=== PATIENT | male | born 1950 | race Two or more races ===

== ENCOUNTER → 2021-05-09 | Outpatient (CLI) | payer MEDICARE ==
[2021-05-09 13:23] LABS: Source, Urine Clean Catch
[2021-05-09 13:40] LABS: Bacteria Not Seen /hpf; Red Blood Cells, Urine Not Seen /hpf (0-2); Squamous Epithelial Cells Rare /hpf (Few); White Blood Cells, Urine Not Seen /hpf (0-5)
[2021-05-09 17:43] LABS: Microalb/Creat Ratio UR, Rand 6.46 mg/g (0.000-30.000); Microalbumin, Random Urine 6.46 mg/L (0.000-20.000)
[2021-05-13 14:10] LABS: M-SPIKE, % Not Observed % (Not Observed); PROTEIN,TOTAL,URINE 6.6 mg/dL (Not Estab.)
== END | disposition home or self-care (01) ==
LOC: LAB SHORT 10:45
PROVIDERS: Family Medicine
DX: N18.32 Chronic kidney disease, stage 3b (principal)
CPT/HCPCS: 81015; 82043; 82570; 84156; 84166

== ENCOUNTER 2021-11-13 10:55 | Day surgery (SDC) | payer MEDICARE ==
[~2021-11-13] VITALS: Ht 182.9 cm; Wt 75.7 kg
[~2021-11-13 10:55] MED LIST: ATOR10 PO
--- NOTE | 2021-11-13 13:13 | NUR ---
Ambulatory in Day Surgery History, Chart, Medications and Allergies reviewed before start of procedure.Lungs clear T/O to Auscultation. Patient confirms NPO status and agrees with scheduled surgery. Patient States Post-Procedure ride home has been arranged.
--- NOTE | 2021-11-13 13:22 | NUR ---
11/13/21 1322 Ivory Gonzalez HISTORY, CHART, MEDICATIONS AND ALLERGIES REVIEWED BEFORE START OF PROCEDURE. PATIENT CONFIRMS NPO STATUS AND AGREES WITH SCHEDULED PROCEDURE. 3-LEAD EKG REVIEWED WITH PHYSICIAN PRIOR TO START OF PROCEDURE. MONITOR INTACT WITH CONTINUOUS PULSE OXIMETRY,CAPNOGRAPHY, 3-LEAD EKG, INTERMITTENT BP. SUPPLEMENTAL O2 TO BE TITRATED THROUGHOUT PROCEDURE TO MAINTAIN O2 SATURATION ABOVE 90%. PATIENT DETERMINED TO BE ASA APPROPRIATE FOR PROPOFOL SEDATION PRIOR TO START OF PROCEDURE BY DR. TREJO.
--- NOTE | 2021-11-13 14:13 | NUR ---
RECIEVED PATIENT VSS RECIEVED REPORT.
--- NOTE | 2021-11-13 14:30 | NUR ---
Discharge instructions reviewed with patient. Patient verbalizes understanding. Copy given to patient to take home. Patient States Post-Procedure ride home has been arranged. Discharged via wheelchair to private car for ride home.
== END 2021-11-13 23:00 | disposition home or self-care (01) ==
LOC: ORSCMMR 10:55 → ORSCSDS 13:30 → ORSCMMR 13:30 → ORD 13:30 → ORSCMMR 23:00
PROVIDERS: Student in an Organized Health Care Education/Training Program
PROC: 0DB78ZX Excision of Stomach, Pylorus, Via Natural or Artificial Opening Endoscopic, Diagnostic (ICD-10-PCS; principal; 2021-11-13 13:30)
PROC: 0DB58ZX Excision of Esophagus, Via Natural or Artificial Opening Endoscopic, Diagnostic (ICD-10-PCS; principal; 2021-11-13 13:30)
DX: K21.00 Gastro-esophageal reflux disease with esophagitis, without bleeding (principal); B96.81 Helicobacter pylori [H. pylori] as the cause of diseases classified elsewhere; K29.70 Gastritis, unspecified, without bleeding; E78.5 Hyperlipidemia, unspecified; Z79.899 Other long term (current) drug therapy
CPT/HCPCS: 88305; 88312; 88342; J2704; J7120

== ENCOUNTER 2023-03-17 07:18 | Emergency (ER) | payer MEDICARE ==
[~2023-03-17] VITALS: Ht 182.9 cm; Wt 74.8 kg
[2023-03-17 09:31] LABS: BASOPHILS ABSOLUTE AUTO 0.03 K/mm3 (0.00-0.23); BASOPHILS PERCENT AUTO 0 % (0-2); EOSINOPHILS ABSOLUTE AUTO 0.04 K/mm3 (0.00-0.68); EOSINOPHILS PERCENT AUTO 0 % (0-6); Hematocrit 49.5 % (37.0-53.0); Hemoglobin 17.1 g/dL (13.5-17.5); IMMATURE GRAN ABSOLUTE AUTO 0.05 K/mm3 (0.00-0.10); IMMATURE GRAN PERCENT AUTO 1 % (0-1); LYMPHOCYTES ABSOLUTE AUTO 0.86 K/mm3 (0.84-5.20); LYMPHOCYTES PERCENT AUTO 8 % (21-46); MONOCYTES ABSOLUTE AUTO 0.54 K/mm3 (0.16-1.47); MONOCYTES PERCENT AUTO 5 % (4-13); Mean Corpuscular HGB 34.6 pg (26.0-34.0); Mean Corpuscular HGB Conc 34.5 g/dL (31.5-36.5); Mean Corpuscular Volume 100 fL (80-100); Mean Platelet Volume 10.2 fL (9.1-12.4); NEUTROPHILS ABSOLUTE AUTO 8.92 K/mm3 (1.96-9.15); NEUTROPHILS PERCENT AUTO 85 % (41-73); Platelet Count 158 K/mm3 (150-400); RDW Coefficient Variation 12.6 % (11.7-14.2); RDW Standard Deviation 46.5 fL (35.1-46.3); Red Blood Cell Count 4.94 M/mm3 (4.30-5.90); White Blood Cell Count 10.44 K/mm3 (4.00-11.30)
[2023-03-17 09:41] LABS: C-REACTIVE PROTEIN, EXT RANGE <0.290 mg/dL (0.000-0.300)
[2023-03-17 09:42] LABS: Alanine Aminotransfer (ALT/SGP 30 U/L (12-78); Albumin, Blood 3.8 g/dL (3.4-5.0); Albumin/Globulin Ratio 1.2 (0.8-1.8); Alk Phos 62 U/L (50-136); Anion Gap 0 mmol/L (6-16); Aspartate Aminotrans (AST/SGOT 20 U/L (12-37); Bilirubin, Total 0.9 mg/dL (0.1-1.0); Blood Urea Nitrogen 17 mg/dL (8-24); Bun/Creatinine Ratio 13.9 (12.0-20.0); CO2, Blood 28 mmol/L (21-32); Calcium, Blood 8.8 mg/dL (8.5-10.1); Chloride, Blood 113 mmol/L (98-108); Creatinine, Blood 1.22 mg/dL (0.60-1.20); Globulin, Blood 3.3 g/dL (2.2-4.0); Glomerular Filtration Rate 63 (60-); Glucose, Blood 133 mg/dL (70-99); Potassium, Blood 4.2 mmol/L (3.5-5.5); Sodium, Blood 141 mmol/L (136-145); Total Protein, Blood 7.1 g/dL (6.4-8.2)
[2023-03-17] MEDS ORDERED: MECL25 PO (11:45)
[2023-03-17 12:33] VITALS: BP 131/89
== END 2023-03-17 12:34 | disposition home or self-care (01) ==
LOC: ER 07:18
PROVIDERS: Physician Assistant
DX: R42 Dizziness and giddiness (principal); E78.5 Hyperlipidemia, unspecified; Z79.899 Other long term (current) drug therapy
CPT/HCPCS: 80053; 85025; 86140; 96374; 99284-25; A9270; J2405

== ENCOUNTER 2023-08-03 19:19 | Emergency (ER) | payer MEDICARE ==
[~2023-08-03] VITALS: Ht 162.6 cm; Wt 72.6 kg
[~2023-08-03 19:19] MED LIST changes: +MECL25 PO
[2023-08-03] MEDS ORDERED: Acetaminophen 500 MG Tab PO ONE (20:05)
[2023-08-03 20:13] LABS: BASOPHILS ABSOLUTE AUTO 0.05 K/mm3 (0.00-0.23); BASOPHILS PERCENT AUTO 1 % (0-2); EOSINOPHILS ABSOLUTE AUTO 0.02 K/mm3 (0.00-0.68); EOSINOPHILS PERCENT AUTO 0 % (0-6); Hematocrit 49.8 % (37.0-53.0); Hemoglobin 17.2 g/dL (13.5-17.5); IMMATURE GRAN ABSOLUTE AUTO 0.06 K/mm3 (0.00-0.10); IMMATURE GRAN PERCENT AUTO 1 % (0-1); LYMPHOCYTES ABSOLUTE AUTO 0.82 K/mm3 (0.84-5.20); LYMPHOCYTES PERCENT AUTO 8 % (21-46); MONOCYTES PERCENT AUTO 9 % (4-13); Mean Corpuscular HGB 34.1 pg (26.0-34.0); Mean Corpuscular HGB Conc 34.5 g/dL (31.5-36.5); Mean Corpuscular Volume 99 fL (80-100); Mean Platelet Volume 10.4 fL (9.1-12.4); NEUTROPHILS ABSOLUTE AUTO 8.69 K/mm3 (1.96-9.15); NEUTROPHILS PERCENT AUTO 82 % (41-73); Platelet Count 150 K/mm3 (150-400); RDW Coefficient Variation 12.5 % (11.7-14.2); RDW Standard Deviation 45.5 fL (35.1-46.3); Red Blood Cell Count 5.05 M/mm3 (4.30-5.90); White Blood Cell Count 10.64 K/mm3 (4.00-11.30)
[2023-08-03 20:26] LABS: Albumin, Blood 3.5 g/dL (3.4-5.0); Albumin/Globulin Ratio 0.9 (0.8-1.8); Bilirubin, Total 1.7 mg/dL (0.1-1.0); Bun/Creatinine Ratio 15.5 (12.0-20.0); Calcium, Blood 9.1 mg/dL (8.5-10.1); Creatinine, Blood 1.42 mg/dL (0.60-1.20); Globulin, Blood 3.8 g/dL (2.2-4.0); Potassium, Blood 4.4 mmol/L (3.5-5.5); Total Protein, Blood 7.3 g/dL (6.4-8.2)
[2023-08-03] MEDS ORDERED: Ketorolac Tromethamine 30mg Vial IV ONE (22:30)
[2023-08-03] MEDS ORDERED: DiphenhydrAMINE HCl 50 MG/ML 1ML Vial IV ONE (22:30)
[2023-08-03] MEDS ORDERED: Metoclopramide HCl 5MG / ML 2ML Vial IV ONE (22:30)
[2023-08-03 23:50] LABS: Source, Urine Clean Catch
[2023-08-04] VITALS: BP 126/78
[2023-08-04] MEDS ORDERED: METO10 PO ×2 (00:05→00:18)
[2023-08-04 00:58] LABS: Bilirubin, Urine Neg (Neg); Blood, Urine 5+ (Neg); Glucose Qualitative, Urine Neg (Neg); Ketones, Urine 2+ (Neg); Leukocyte Esterase, Urine Neg (Neg); Nitrite, Urine Neg (Neg); Protein, Urine 2+ (Neg); Specific Gravity, Urine 1.015 (1.003-1.022); Urobilinogen, Urine NORM (Normal)
[2023-08-04 02:00] LABS: Appearance, Urine Clear (Clear); Color, Urine Yellow (P-Yellow)
[2023-08-04 02:02] LABS: Bacteria Few /hpf; Red Blood Cells, Urine 0-2 /hpf (0-2); Squamous Epithelial Cells Few /hpf (Few); White Blood Cells, Urine 0-2 /hpf (0-5)
== END 2023-08-04 00:18 | disposition home or self-care (01) ==
LOC: ER 19:19
PROVIDERS: Student in an Organized Health Care Education/Training Program
DX: H81.399 Other peripheral vertigo, unspecified ear (principal); S20.211A Contusion of right front wall of thorax, initial encounter; S50.01XA Contusion of right elbow, initial encounter; I10 Essential (primary) hypertension; Z79.899 Other long term (current) drug therapy; E78.5 Hyperlipidemia, unspecified
CPT/HCPCS: 36415; 70450; 71101; 73080; 80053; 81001; 83605; 83690; 84484; 85025; 87040; 93005; 93010; 96374; 96375; 99285-25; A9270; J1200; J1885; J2765

== ENCOUNTER 2023-11-30 09:06 | Day surgery (SDC) | payer MEDICARE ==
[2023-11-30] VITALS (16 sets, daily range): BP systolic 95–140; BP diastolic 67–103
[~2023-11-30] VITALS: Ht 177.8 cm; Wt 77.7 kg
[~2023-11-30 09:06] MED LIST changes: +Benzocaine Oral Spray 0.5ML UD ONE; +Lactated Ringer's 1,000 ML IV SCH; +METO10 PO; +OMEP20ER
--- NOTE | 2023-11-30 10:07 | NUR ---
PT TO DAY SURGERY FOR EGD. CHART REVIEWED. PLAN OF CARE DISCUSSED WITH PT. QUESTIONS ANSWERED. PT HERE WITH AND SHE WILL BE HIS RIDE HOME.
[2023-11-30] MEDS ORDERED: propofoL 20 ML IV ONE (10:43)
--- NOTE | 2023-11-30 11:16 | NUR ---
REPORT RECEIVED FROM BUCK VINES. VSS. PT A&OX4. PT ON RA. PT ABLE TO REPOSITION SELF IN BED. PT REQUESTING PO FLUIDS AND TOLERATING THEM WELL. PT DENIES PAIN, NAUSEA OR OTHER DISCOMFORTS.
--- NOTE | 2023-11-30 11:17 | NUR ---
11/30/23 Ivana Landrum HISTORY, CHART, MEDICATIONS AND ALLERGIES REVIEWED BEFORE START OF PROCEDURE. PATIENT CONFIRMS NPO STATUS AND AGREES WITH SCHEDULED PROCEDURE. 3-LEAD EKG REVIEWED WITH PHYSICIAN PRIOR TO START OF PROCEDURE. MONITOR INTACT WITH CONTINUOUS PULSE OXIMETRY,CAPNOGRAPHY, 3-LEAD EKG, INTERMITTENT BP. SUPPLEMENTAL O2 TO BE TITRATED THROUGHOUT PROCEDURE TO MAINTAIN O2 SATURATION ABOVE 90%. PATIENT DETERMINED TO BE ASA APPROPRIATE FOR PROPOFOL SEDATION PRIOR TO START OF PROCEDURE BY
--- NOTE | 2023-11-30 11:41 | NUR ---
Patient up to Ambulate independently. Gait steady. VSS AND CONSISTENT WITH PT BASELINE. PT HAS NO COMPLAINTS AND VERBALIZES READINESS TO GO HOME. Discharge instructions reviewed with patient AND HIS SPOUSE. Patient verbalizes understanding. Copy given to patient to take home. Discharged via wheelchair to private car for ride home. PT BELONGINGS RETURNED TO PT.
== END 2023-11-30 11:43 | disposition home or self-care (01) ==
LOC: ORSCMMR 09:06 → ORD 10:00 → ORSCMMR 10:00
PROVIDERS: Internal Medicine Gastroenterology
PROC: 0DB68ZX Excision of Stomach, Via Natural or Artificial Opening Endoscopic, Diagnostic (ICD-10-PCS; principal; 2023-11-30 10:00)
PROC: 0DB48ZX Excision of Esophagogastric Junction, Via Natural or Artificial Opening Endoscopic, Diagnostic (ICD-10-PCS; principal; 2023-11-30 10:00)
DX: K29.00 Acute gastritis without bleeding (principal); K22.70 Barrett's esophagus without dysplasia; K21.00 Gastro-esophageal reflux disease with esophagitis, without bleeding; E78.00 Pure hypercholesterolemia, unspecified; Z79.899 Other long term (current) drug therapy
CPT/HCPCS: 88305; 88342; A9270; J2704; J7120

== ENCOUNTER → 2023-12-30 | Outpatient (CLI) | payer MEDICARE ==
[~2023-12-30] MED LIST changes: -Benzocaine Oral Spray 0.5ML UD ONE; -Lactated Ringer's 1,000 ML IV SCH
[2023-12-30 12:31] LABS: Adenovirus F 40/41 Not Detected (NOT DETECT); Astrovirus Not Detected (NOT DETECT); Campylobacter Sp Not Detected (NOT DETECT); Cryptosporidium Not Detected (NOT DETECT); Cyclospora Cayetanensis Not Detected (NOT DETECT); E. Coli O157 Not Detected (NOT DETECT); Entamoeba Histolytica Not Detected (NOT DETECT); Enteroaggregative E. coli-EAEC Not Detected (NOT DETECT); Enteropathogenic E. coli-EPEC Not Detected (NOT DETECT); Enterotoxigenic E. coli-ETEC Not Detected (NOT DETECT); Giardia Lamblia Not Detected (NOT DETECT); Norovirus GI/GII Not Detected (NOT DETECT); Plesiomonas Shigelloides Not Detected (NOT DETECT); Rotavirus A Not Detected (NOT DETECT); Salmonella Sp Not Detected (NOT DETECT); Sapovirus Not Detected (NOT DETECT); Shiga Toxin-prod E. coli-STEC Not Detected (NOT DETECT); Shigella/Enteroin E. coli-EIEC Not Detected (NOT DETECT); Vibrio Cholerae Not Detected (NOT DETECT); Vibrio Sp Not Detected (NOT DETECT); Yersinia Enterocolitica Not Detected (NOT DETECT)
== END ==
LOC: LAB SHORT 06:50 → LAB 06:50
PROVIDERS: Family Medicine
DX: R19.7 Diarrhea, unspecified (principal)
CPT/HCPCS: 87507

== ENCOUNTER 2024-03-28 09:38 | Day surgery (SDC) | payer MEDICARE ==
[~2024-03-28] VITALS: Ht 15.2 cm; Wt 79.0 kg
[2024-03-28] VITALS (18 sets, daily range): BP systolic 117–174; BP diastolic 76–145
[~2024-03-28 09:38] MED LIST changes: +NS 500 ML IV SCH
--- NOTE | 2024-03-28 10:51 | NUR ---
Ambulatory in Day Surgery WITH STEADY GAIT. History, Chart, Medications and Allergies reviewed before start of procedure. Pre-Op teaching done. Pt verbalizes understanding. Patient States Post-Procedure ride home has been arranged WITH SPOUSE.
[2024-03-28] MEDS ORDERED: propofoL 40 ML IV ONE (10:52)
--- NOTE | 2024-03-28 10:56 | NUR ---
03/28/24 1056 Chelle Sierra CONFIRMED AND REVIEWED H&P, MEDCICATIONS, ALLERGIES, MEDICAL HISTORY, RESPIRATORY HISTORY, VITAL SIGNS, 3-LEAD EKG, CONSENTS, AND PHYSICIAN ORDERS. PATIENT CONFIRMS NPO STATUS AND AGREES WITH SCHEDULED PROCEDURE. MONITOR INTACT WITH CONTINUOUS PULSE OXIMETRY, CAPNOGRAPHY, 3-LEAD EKG, INTERMITTENT BP. SUPPLEMENTAL O2 TO BE TITRATED THROUGHOUT PROCEDURE TO MAINTAIN O2 SATURATION ABOVE 90%. PATIENT DETERMINED TO BE ASA APPROPRIATE FOR PROPOFOL SEDATION PRIOR TO START OF PROCEDURE BY DR. CASSIDY.
--- NOTE | 2024-03-28 11:25 | NUR ---
PT TO DAY SURGERY STEP DOWN FROM COLONOSCOPY; BEDSIDE REPORT RECEIVED. PT IS AWAKE, ALERT AND ORIENTED; ABLE TO MOVE SELF IN BED. AT BEDSIDE.
--- NOTE | 2024-03-28 11:37 | NUR ---
PT DENIES PO FLUIDS. Discharge instructions reviewed with patient. Patient verbalizes understanding. Copy given to patient to take home. Patient States Post-Procedure ride home has been arranged.
--- NOTE | 2024-03-28 12:02 | NUR ---
Patient up to Ambulate independently. Gait steady. Discharged via wheelchair to private car for ride home.
== END 2024-03-28 12:03 | disposition home or self-care (01) ==
LOC: ORSCMMR 09:38 → ORD 11:00 → ORSCMMR 11:00
PROVIDERS: Internal Medicine Gastroenterology
PROC: 0DBN8ZX Excision of Sigmoid Colon, Via Natural or Artificial Opening Endoscopic, Diagnostic (ICD-10-PCS; principal; 2024-03-28 11:00)
DX: K62.5 Hemorrhage of anus and rectum (principal); D12.5 Benign neoplasm of sigmoid colon; K51.40 Inflammatory polyps of colon without complications; K57.30 Diverticulosis of large intestine without perforation or abscess without bleeding; K22.70 Barrett's esophagus without dysplasia; E78.00 Pure hypercholesterolemia, unspecified; Z79.899 Other long term (current) drug therapy
CPT/HCPCS: 88305; J2704; J7040

== ENCOUNTER 2024-06-03 10:14 | Emergency (ER) | payer MEDICARE ==
[~2024-06-03] VITALS: Ht 180.3 cm; Wt 82.1 kg
[~2024-06-03 10:14] MED LIST changes: -NS 500 ML IV SCH
[2024-06-03 10:47] LABS: BASOPHILS ABSOLUTE AUTO 0.11 K/mm3 (0.00-0.23); BASOPHILS PERCENT AUTO 2 % (0-2); EOSINOPHILS ABSOLUTE AUTO 0.47 K/mm3 (0.00-0.68); EOSINOPHILS PERCENT AUTO 6 % (0-6); Hematocrit 48.2 % (37.0-53.0); Hemoglobin 17.1 g/dL (13.5-17.5); Mean Corpuscular HGB Conc 35.5 g/dL (31.5-36.5); Mean Corpuscular Volume 96 fL (80-100); Mean Platelet Volume 12.2 fL (9.1-12.4); NRBC ABSOLUTE 0.02 K/mm3 (0.00-0.02); NRBC Auto 0.3 /100 WBC (0.0-0.2); Platelet Count 311 K/mm3 (150-400); RDW Coefficient Variation 13.6 % (11.7-14.2); RDW Standard Deviation 47.9 fL (35.1-46.3); Red Blood Cell Count 5.03 M/mm3 (4.30-5.90)
[2024-06-03 10:59] LABS: IMMATURE GRAN ABSOLUTE AUTO 0.15 K/mm3 (0.00-0.10); IMMATURE GRAN PERCENT AUTO 2 % (0-1); LYMPHOCYTES ABSOLUTE AUTO 2.17 K/mm3 (0.84-5.20); LYMPHOCYTES PERCENT AUTO 30 % (21-46); MONOCYTES ABSOLUTE AUTO 0.69 K/mm3 (0.16-1.47); MONOCYTES PERCENT AUTO 10 % (4-13); NEUTROPHILS ABSOLUTE AUTO 3.71 K/mm3 (1.96-9.15); NEUTROPHILS PERCENT AUTO 51 % (41-73)
[2024-06-03 11:23] LABS: International Normalized Ratio 1.12; Prothrombin Time Results 11.9 Sec (9.7-11.5)
[2024-06-03 11:25] LABS: Albumin, Blood 3.7 g/dL (3.4-5.0); Albumin/Globulin Ratio 1.2 (0.8-1.8); Bun/Creatinine Ratio 19.2 (12.0-20.0); Calcium, Blood 9.2 mg/dL (8.5-10.1); Creatinine, Blood 1.2 mg/dL (0.60-1.20); Globulin, Blood 3.2 g/dL (2.2-4.0); Potassium, Blood 4.2 mmol/L (3.5-5.5); Total Protein, Blood 6.9 g/dL (6.4-8.2)
[2024-06-03 11:26] LABS: BASOPHILS ABSOLUTE MAN 0.14 K/mm3 (0.00-0.23); BASOPHILS PERCENT MAN 2 % (0-2); EOSINOPHILS ABSOLUTE MAN 0.36 K/mm3 (0.00-0.68); EOSINOPHILS PERCENT MAN 5 % (0-6); LYMPHOCYTES ABSOLUTE MAN 2.33 K/mm3 (0.84-5.20); LYMPHOCYTES PERCENT MAN 32 % (21-46); METAMYELOCYTE ABSOLUTE MAN 0.07 K/mm3 (0.00-0.00); METAMYELOCYTE PERCENT MAN 1 % (0-0); MONOCYTES ABSOLUTE MAN 0.51 K/mm3 (0.16-1.47); MONOCYTES PERCENT MAN 7 % (4-13); NEUTROPHILS ABSOLUTE MAN 3.86 K/mm3 (1.96-9.15); SEG NEUTROPHILS PERCENT MAN 53 % (41-73); TOTAL CELLS COUNTED 100
[2024-06-03 12:00] VITALS: BP 145/89
== END 2024-06-03 12:14 | disposition home or self-care (01) ==
LOC: ER 10:14
PROVIDERS: Emergency Medicine
DX: I62.9 Nontraumatic intracranial hemorrhage, unspecified (principal); I61.0 Nontraumatic intracerebral hemorrhage in hemisphere, subcortical; G81.91 Hemiplegia, unspecified affecting right dominant side; E78.5 Hyperlipidemia, unspecified; Z79.899 Other long term (current) drug therapy
CPT/HCPCS: 70450; 80053; 85025; 85610; 85730; 93005; 93010; 99285-25

== ENCOUNTER 2024-06-26 10:13 | Inpatient (IN) | payer MEDICARE ==
[~2024-06-26] VITALS: Ht 182.9 cm; Wt 82.2 kg
[~2024-06-26 10:13] MED LIST changes: -OMEP20ER; +OMEP20ER PO
[2024-06-26 10:25] LABS: Calcium, Ionized (POC) 1.09 mmol/L (1.10-1.46); Chloride (POC) 102 mmol/L (98-108); Creatinine (POC) 1.6 mg/dL (0.8-1.3); Glucose (ISTAT POC) 229 mg/dL (70-99); Hemoglobin (POC) 19.4 g/dL (13.5-17.5); Potassium (POC) 3.2 mmol/L (3.5-5.5); Sodium (POC) 140 mmol/L (135-148); Total CO2 (POC) 21 mmol/L (21-32)
[2024-06-26] MEDS ORDERED: fentaNYL citrate 1,000 MCG in NS 80 ML IV SCH ×2 (10:25→15:20)
[2024-06-26 10:34] LABS: Source, Urine Foley catheter
[2024-06-26 10:34] LABS: Hemoglobin 18.5 g/dL (13.5-17.5); Mean Corpuscular HGB Conc 32.7 g/dL (31.5-36.5); Mean Corpuscular Volume 104 fL (80-100); Mean Platelet Volume 9.7 fL (9.1-12.4); Platelet Count 123 K/mm3 (150-400); RDW Coefficient Variation 12.4 % (11.7-14.2); Red Blood Cell Count 5.44 M/mm3 (4.30-5.90); White Blood Cell Count 14.76 K/mm3 (4.00-11.30)
[2024-06-26 10:43] LABS: Hematocrit 56.5 % (37.0-53.0)
[2024-06-26 10:53] LABS: Base Excess Venous -12.7 mmol/L; Bicarbonate Venous 13.9 mmol/L (24.0-30.0); PCO2 Venous 70.9 mmHg (38-42); pH Blood Venous 7.02 (7.34-7.37)
[2024-06-26 10:58] LABS: Albumin, Blood 3.1 g/dL (3.4-5.0); Albumin/Globulin Ratio 0.9 (0.8-1.8); Bilirubin, Total 0.9 mg/dL (0.1-1.0); Calcium, Blood 8.3 mg/dL (8.5-10.1); Creatinine, Blood 1.5 mg/dL (0.60-1.20); Globulin, Blood 3.4 g/dL (2.2-4.0); Magnesium, Blood 2.8 mg/dL (1.6-2.4); Potassium, Blood 3.2 mmol/L (3.5-5.5); Total Protein, Blood 6.5 g/dL (6.4-8.2)
[2024-06-26] MEDS ORDERED: Lactated Ringer's 1,000 ML IV ONE ×3 (11:05→18:21)
[2024-06-26] MEDS ORDERED: Potassium Chl 20MEQ/Water100ML 100 ML IV SCH (11:20)
[2024-06-26 11:21] LABS: Appearance, Urine Hazy (Clear); Bilirubin, Urine Neg (Neg); Blood, Urine 5+ (Neg); Color, Urine Yellow (P-Yellow); Glucose Qualitative, Urine Neg (Neg); Ketones, Urine Neg (Neg); Leukocyte Esterase, Urine Neg (Neg); Nitrite, Urine Neg (Neg); Protein, Urine 2+ (Neg); Urobilinogen, Urine NORM (Normal)
[2024-06-26] MEDS ORDERED: Potassium Chloride 20 MEQ in NS 90 ML IV SCH (11:25)
[2024-06-26 11:42] LABS: International Normalized Ratio 1.07; Prothrombin Time Results 11.4 Sec (9.7-11.5)
[2024-06-26] MEDS ORDERED: Amlodipine Bes2.5 MG PO (11:52)
[2024-06-26] MEDS ORDERED: Acetaminophen650 M1 PO (11:52)
[2024-06-26] MEDS ORDERED: Zofran4 MG PO (11:53)
[2024-06-26 12:06] LABS: Amorphous Light (0-Heavy); Bacteria Not Seen /hpf; Squamous Epithelial Cells Few /hpf (Few); White Blood Cells, Urine 0-2 /hpf (0-5)
[2024-06-26 12:43] LABS: CORONAVIRUS COVID-19 AG Negative (NEGATIVE); INFLUENZA A AG Negative (NEGATIVE); INFLUENZA B AG Negative (NEGATIVE)
[2024-06-26] MEDS ORDERED: Midazolam HCl 1MG / ML 2ML Vial IV PRN (13:05)
[2024-06-26 13:13] LABS: BASOPHILS PERCENT MAN 0 % (0-2); EOSINOPHILS ABSOLUTE MAN 0.44 K/mm3 (0.00-0.68); EOSINOPHILS PERCENT MAN 3 % (0-6); LYMPHOCYTES ABSOLUTE MAN 7.23 K/mm3 (0.84-5.20); LYMPHOCYTES PERCENT MAN 49 % (21-46); METAMYELOCYTE ABSOLUTE MAN 0.14 K/mm3 (0.00-0.00); METAMYELOCYTE PERCENT MAN 1 % (0-0); MONOCYTES ABSOLUTE MAN 0.29 K/mm3 (0.16-1.47); MONOCYTES PERCENT MAN 2 % (4-13); MYELOCYTE ABSOLUTE MAN 0.29 K/mm3 (0.00-0.00); MYELOCYTE PERCENT MAN 2 % (0-0); NEUTROPHILS ABSOLUTE MAN 6.34 K/mm3 (1.96-9.15); SEG NEUTROPHILS PERCENT MAN 43 % (41-73); TOTAL CELLS COUNTED 100
[2024-06-26] MEDS ORDERED: Lactated Ringer's 1,000 ML IV SCH ×2 (14:20→22:45)
[2024-06-26] MEDS ORDERED: propofoL 100 ML IV SCH (14:25)
[2024-06-26] MEDS ORDERED: FentaNYL Citrate 50 MCG/ML 2 ML Injection IV PRN (14:50)
[2024-06-26] MEDS ORDERED: LORazepam 2 MG/ML 1ML Injection IV PRN (14:50)
[2024-06-26] MEDS ORDERED: Cetylpyridinium Chloride 1 EA MISC MT SCH (14:50)
[2024-06-26 15:34] LABS: Anti-Xa UFH, PHA Monitoring <0.10 IU/mL
[2024-06-26] MEDS ORDERED: Heparin Sodium,Porcine/0.5 NS 500 ML IV SCH (15:45)
--- NOTE | 2024-06-26 15:51 | NUR ---
1549: pacer on 30 amp @ 100; Dr. Mckeon and Dr. Cochran at bedside. 1550: 1 mg atropine in 1551: 1 mg Epinephrine in 1552: Femoral pulse obtained via Doppler 1552: Sodium bicarb in, 50 meq in 50 mL; Family at bedside 1553: BP 125/106 (113) 1553: CBG 255 1555: Vent settings: AC/VC 16/400/10/70% 1556: HR 160, EKG Completed 1559: HEPARIN GTT STARTED. 1603: HR 59, EPI GTT ORDERED 1605: 0.5 MG EPI GIVEN. 1606: HR 63; 100% FIO2 ON VENT 1608: 118/87 (98); HR 153; SPO2 99% 1611: LEVOPHED STOPPED. EPI GTT STARTED AT 2 MCG/MIN. 1614: EPI INCREASED TO 5 MCG/MIN; HR 65 (COMPLETE HEART BLOCK PER DR. MCKEON) 1614: 88/32 (48); HR 60 1616: EPI INCREASED TO 10 MCG/MIN; HR 60; 54/40 (45) 1617: PROPOFOL TO 20 MG/KG/MIN 1618: 57/40 (46); HR 60 1618: LEVOPHED RESTARTED AT 4 MCG/MIN 1621: 54/47 (51); HR 59 1624: 50 MEQ BICARB IN; TRANSCUTANEOUS PACING STARTED 1627: LEVOPHED TO 6 MCG/MIN; VASOPRESSIN STARTED AT 0.04 UNITS/MIN. 1630: PATIENT TRANSFERRED TO [facility]
[2024-06-26] MEDS ORDERED: Piperacillin/Tazobactam Sod 3.375 GM in NS 100 ML IV SCH (16:00)
[2024-06-26] MEDS ORDERED: Hydrogen Peroxide 1.5 % Solution MT SCH (16:00)
[2024-06-26] MEDS ORDERED: Vancomycin HCL 2,000 MG in NS 500 ML IV SCH (16:00)
[2024-06-26] MEDS ORDERED: Vasopressin 20 UNITS in NS 100 ML IV SCH (16:20)
[2024-06-26 16:22] LABS: PCO2 Arterial 33.6 mmHg (35-45); pH Blood Arterial 7.18 (7.35-7.45)
[2024-06-26 16:23] LABS: PO2 Arterial 123 mmHg (80-100)
[2024-06-26] MEDS ORDERED: NS 250 ML IV ONE (16:35)
[2024-06-26] MEDS ORDERED: NS 1,000 ML IV ONE ×4 (16:35→18:18)
[2024-06-26] MEDS ORDERED: Heparin Sodium 1000 Units/ML 10ML MDV ONE ×4 (16:35→18:37)
[2024-06-26] MEDS ORDERED: Phenylephrine HCl in 0.9% NaCl 250 ML IV SCH (18:35)
[2024-06-26] MEDS ORDERED: Clopidogrel Bisulfate 300 MG Cap ONE (18:47)
[2024-06-26] MEDS ORDERED: Aspirin 325 MG Tab ONE (18:50)
[2024-06-26] MEDS ORDERED: NS 500 ML IV ONE (18:54)
[2024-06-26 19:57] LABS: PO2 Arterial 131 mmHg (80-100)
[2024-06-26] MEDS ORDERED: Atropine Sulfate 0.1 MG/ML 10ML SYR XX ONE (19:58)
[2024-06-26] MEDS ORDERED: Sodium Bicarb 8.4% 50 mEq Syringe IV ONE (19:58)
[2024-06-26] MEDS ORDERED: EPINEPhrine HCl 0.1 MG/ML 10ML SYR XX ONE (19:58)
[2024-06-26 19:59] LABS: pH Blood Arterial 7.11 (7.35-7.45)
--- NOTE | 2024-06-26 20:01 | NUR ---
Summary. Pt arrived to ICU at approximately 1349 from ED. Pt intubated, fentanyl infusing at 25 mcg/hr. Pt minimally responsive but would follow simple commands weakly with notable deficit on right side. Shortly after arrival to ICU pt condition declined and physician called along with additional staff to bedside to assist, see note. Pt taken to heart center for temp pacemaker placement and paving and surfacing labourer interventions, see chart for details. Pt back to ICU at approximately 1920 from paving and surfacing labourer.
[2024-06-26 20:05] VITALS: BP 117/70; BP 17/70
[2024-06-26 20:05] LABS: BASOPHILS ABSOLUTE AUTO 0.16 K/mm3 (0.00-0.23); BASOPHILS PERCENT AUTO 1 % (0-2); EOSINOPHILS ABSOLUTE AUTO 0.02 K/mm3 (0.00-0.68); EOSINOPHILS PERCENT AUTO 0 % (0-6); Hematocrit 48.4 % (37.0-53.0); Hemoglobin 15.9 g/dL (13.5-17.5); IMMATURE GRAN ABSOLUTE AUTO 1.51 K/mm3 (0.00-0.10); IMMATURE GRAN PERCENT AUTO 4 % (0-1); LYMPHOCYTES ABSOLUTE AUTO 2.03 K/mm3 (0.84-5.20); LYMPHOCYTES PERCENT AUTO 6 % (21-46); MONOCYTES ABSOLUTE AUTO 1.89 K/mm3 (0.16-1.47); MONOCYTES PERCENT AUTO 6 % (4-13); Mean Corpuscular HGB 33.9 pg (26.0-34.0); Mean Corpuscular HGB Conc 32.9 g/dL (31.5-36.5); Mean Corpuscular Volume 103 fL (80-100); NEUTROPHILS ABSOLUTE AUTO 28.44 K/mm3 (1.96-9.15); NEUTROPHILS PERCENT AUTO 83 % (41-73); Platelet Count 133 K/mm3 (150-400); RDW Coefficient Variation 12.5 % (11.7-14.2); RDW Standard Deviation 47.8 fL (35.1-46.3); Red Blood Cell Count 4.69 M/mm3 (4.30-5.90); White Blood Cell Count 34.05 K/mm3 (4.00-11.30)
[2024-06-26 20:22] LABS: Albumin, Blood 2.3 g/dL (3.4-5.0); Albumin/Globulin Ratio 0.9 (0.8-1.8); Bilirubin, Total 1.7 mg/dL (0.1-1.0); Bun/Creatinine Ratio 11.4 (12.0-20.0); Calcium, Blood 7.5 mg/dL (8.5-10.1); Creatinine, Blood 2.01 mg/dL (0.60-1.20); Globulin, Blood 2.7 g/dL (2.2-4.0); Potassium, Blood 3.8 mmol/L (3.5-5.5)
[2024-06-26 20:47] VITALS: BP 91/51
[2024-06-26] MEDS ORDERED: DOBUtamine 250 MG/D5W 250 ML 250 ML IV SCH (22:45)
[2024-06-26] MEDS ORDERED: Dose Adjust by Pharmacy XX STA (23:44)
[2024-06-27] VITALS (16 sets, daily range): BP systolic 71–150; BP diastolic 47–89
--- NOTE | 2024-06-27 00:02 | NUR ---
ASSUME CARE @ 1900 FROM PREFORM MACHINE OPERATOR: PT INTUBATED AND SEDATED, RASS -4. PROPOFOL AT 30 MCG/KG/MIN. PREFORM MACHINE OPERATOR PLACED TEMPORARY PACEMAKER, RATE 90, OUTPUT 5.0, SENSE 2.0, DRESSING C/D/I. MONITOR SHOWS PACED, SINUS TACH W/PVCs. SBP 90s-100s, MAP 60-70s. PT ON PRESSORS, SEE FLOWSHEET FOR TITRATIONS. ARTLINE IN PLACE, DRESSING C/D/I, NO SIGNS OF HEMATOMA. SP02>95% ON VENT, SETTINGS 16/400/10/85%. OGT IN PLACE, CLAMPED. TEMP LYONS IN PLACE DRAINING TO GRAVITY. 2300: DR. JOSHI NOTIFIED OF LACTIC ACID OF 11.1, NEW ORDERS RECIEVED, SEE EMAR. WILL UPDATE NEEDED.
[2024-06-27 00:58] LABS: Bun/Creatinine Ratio 13.4 (12.0-20.0); Calcium, Blood 7.3 mg/dL (8.5-10.1); Creatinine, Blood 1.87 mg/dL (0.60-1.20); Potassium, Blood 5.5 mmol/L (3.5-5.5)
[2024-06-27] MEDS ORDERED: Dose Adjust by Pharmacy XX STA ×5 (01:25→20:32)
[2024-06-27 04:03] LABS: PCO2 Arterial 31.5 mmHg (35-45); PO2 Arterial 174 mmHg (80-100)
[2024-06-27 04:08] LABS: BASOPHILS ABSOLUTE AUTO 0.11 K/mm3 (0.00-0.23); BASOPHILS PERCENT AUTO 0 % (0-2); EOSINOPHILS PERCENT AUTO 0 % (0-6); Hematocrit 45.6 % (37.0-53.0); Hemoglobin 15.9 g/dL (13.5-17.5); IMMATURE GRAN ABSOLUTE AUTO 0.47 K/mm3 (0.00-0.10); IMMATURE GRAN PERCENT AUTO 2 % (0-1); LYMPHOCYTES ABSOLUTE AUTO 1.87 K/mm3 (0.84-5.20); LYMPHOCYTES PERCENT AUTO 7 % (21-46); MONOCYTES ABSOLUTE AUTO 1.51 K/mm3 (0.16-1.47); MONOCYTES PERCENT AUTO 6 % (4-13); Mean Corpuscular HGB 34.1 pg (26.0-34.0); Mean Corpuscular HGB Conc 34.9 g/dL (31.5-36.5); Mean Platelet Volume 9.8 fL (9.1-12.4); NEUTROPHILS ABSOLUTE AUTO 23.68 K/mm3 (1.96-9.15); NEUTROPHILS PERCENT AUTO 86 % (41-73); Platelet Count 125 K/mm3 (150-400); RDW Coefficient Variation 12.3 % (11.7-14.2); RDW Standard Deviation 44.3 fL (35.1-46.3); Red Blood Cell Count 4.66 M/mm3 (4.30-5.90); White Blood Cell Count 27.64 K/mm3 (4.00-11.30)
[2024-06-27 04:10] LABS: Mean Corpuscular Volume 98 fL (80-100)
[2024-06-27 04:23] LABS: Albumin, Blood 2.5 g/dL (3.4-5.0); Albumin/Globulin Ratio 0.9 (0.8-1.8); Bilirubin, Direct 0.4 mg/dL (0.0-0.3); Bilirubin, Indirect 0.6 mg/dL (0.1-0.7); Bun/Creatinine Ratio 13.3 (12.0-20.0); Calcium, Blood 7.2 mg/dL (8.5-10.1); Creatinine, Blood 1.73 mg/dL (0.60-1.20); Globulin, Blood 2.7 g/dL (2.2-4.0); Magnesium, Blood 1.8 mg/dL (1.6-2.4); Phosphorus, Blood 3.2 mg/dL (2.5-4.9); Potassium, Blood 5.8 mmol/L (3.5-5.5); Total Protein, Blood 5.2 g/dL (6.4-8.2)
--- NOTE | 2024-06-27 05:53 | NUR ---
SHIFT SUMMARY: PT INTUBATED AND SEDATED, RASS -4. PROPOFOL AT 30 MCG/KG/MIN. SBP LOW AT TIMES, SBP 70s MAP <65 PER ARTLINE, PT ON PRESSORS, SEE FLOWSHEET FOR TITRATIONS. MONITOR SHOWS SR TO IDOVENTRICULAR RATE IN THE 90s, SOME PACED BEATS. TEMPORARY PACER IN PLACE, DRESSING C/D/I. SPO2>95% ON VENT, SEE RT NOTES FOR SETTINGS. RECTAL PROBE PLACED FOR TEMP, PT INITIALLY HYPOTHERMIC, BEAR HUGGER PLACED AT LOW SETTING. ARTLINE IN PLACE TO RIGHT FEMORAL, CENTRAL LINE IN PLACE TO LEFT FEMORAL, DRESSINGS C/D/I. LYONS PATENT DRAINING TO GRAVITY. WILL REPORT TO ONCOMING RN.
[2024-06-27] MEDS ORDERED: Pantoprazole Sodium 40 MG Injection IV SCH (06:00)
--- NOTE | 2024-06-27 06:22 | NUR ---
UPDATE CALL MADE TO DR JOSHI AT 0520 REGARDING RHYTHM CHANGE AROUND 0330. PT WAS EITHER NSR WITH RATE 90-100, BP 150'S/60'S, MAP 80'S, OR IS TRANSITIONING TO A VENTRICULAR-PACED RHYTHM WITH RATE 80'S, BP 80'S/40'S, MAP 50'S. HE WILL GO BETWEEN THESE TWO RHYTHMS ALTERNATING EVERY 20-30 SECONDS. AT THIS TIME LEVOPHED INFUSING AT 30MCG/MIN, DOBUTAMINE INFUSING AT 3.5MCG/KG/MIN, AND VASOPRESSIN INFUSING AT 0.04UNTIS/MIN. EKG COMPLETED WHILE IN NSR AND IN VENTRICULAR RHYTHM; LABS DRAWN. DR JOSHI GAVE DIRECTIONS TO TURN THE DOBUTAMINE OFF. AFTER TURING GTT OFF, EPI RESTARTED AND TITRATED TO 8MCG/MIN, AND AHSAN RESTARTED AND TITRATED TO 30MCG/MIN TO MAINTAIN MAP >65. HE IS NOW MORE FREQUENTLY IN THE VENTRICULAR RHYTHM WITH RATE 80-90'S AND ONLY HAVE A FEW (3-5) NSR BEATS AT A TIME.
[2024-06-27] MEDS ORDERED: Acetaminophen 160MG / 5ML 10.15 UDC PT PRN (08:20)
[2024-06-27] MEDS ORDERED: Magnesium Sulf 2 GM/Water 50ML 50 ML IV ONE (08:50)
[2024-06-27] MEDS ORDERED: Sodium Bicarb 8.4% Inj 150 MEQ in Dextrose 5% 1,000 ML IV SCH (08:50)
[2024-06-27] MEDS ORDERED: Calcium Chloride 10% 2,000 MG in NS 100 ML IV ONE (08:50)
[2024-06-27] MEDS ORDERED: Aspirin 81 MG Chew PO SCH (09:00)
[2024-06-27] MEDS ORDERED: Clopidogrel Bisulfate 75 MG Tab PO SCH (09:00)
[2024-06-27] MEDS ORDERED: Meperidine HCl 50 MG/ML 1ML Injection IV PRN (10:45)
[2024-06-27] MEDS ORDERED: Bisacodyl 10 MG Supp PR PRN (11:10)
[2024-06-27] MEDS ORDERED: Docusate Sodium Liquid 100 MG UDC PT PRN (11:10)
[2024-06-27] MEDS ORDERED: Magnesium Hydroxide Conc 10 ML UDC PT PRN (11:10)
[2024-06-27] MEDS ORDERED: Insulin Regular 100 UNIT/ML 10ML Vial SC SCH (12:00)
[2024-06-27] MEDS ORDERED: Vancomycin HCL 1,000 MG in NS 250 ML IV SCH ×2 (16:00→20:00)
[2024-06-27 16:23] LABS: PCO2 Arterial 33.8 mmHg (35-45); PO2 Arterial 75.7 mmHg (80-100); pH Blood Arterial 7.39 (7.35-7.45)
[2024-06-27 17:10] LABS: BASOPHILS ABSOLUTE AUTO 0.07 K/mm3 (0.00-0.23); BASOPHILS PERCENT AUTO 0 % (0-2); EOSINOPHILS PERCENT AUTO 0 % (0-6); Hematocrit 41.6 % (37.0-53.0); Hemoglobin 14.5 g/dL (13.5-17.5); IMMATURE GRAN ABSOLUTE AUTO 0.13 K/mm3 (0.00-0.10); IMMATURE GRAN PERCENT AUTO 1 % (0-1); LYMPHOCYTES ABSOLUTE AUTO 2.08 K/mm3 (0.84-5.20); LYMPHOCYTES PERCENT AUTO 10 % (21-46); MONOCYTES ABSOLUTE AUTO 1.37 K/mm3 (0.16-1.47); MONOCYTES PERCENT AUTO 6 % (4-13); Mean Corpuscular HGB 33.5 pg (26.0-34.0); Mean Corpuscular HGB Conc 34.9 g/dL (31.5-36.5); Mean Corpuscular Volume 96 fL (80-100); Mean Platelet Volume 10.5 fL (9.1-12.4); NEUTROPHILS ABSOLUTE AUTO 17.81 K/mm3 (1.96-9.15); NEUTROPHILS PERCENT AUTO 83 % (41-73); Platelet Count 113 K/mm3 (150-400); RDW Coefficient Variation 12.4 % (11.7-14.2); RDW Standard Deviation 43.6 fL (35.1-46.3); Red Blood Cell Count 4.33 M/mm3 (4.30-5.90); White Blood Cell Count 21.46 K/mm3 (4.00-11.30)
--- NOTE | 2024-06-27 17:38 | NUR ---
SHIFT SUMMARY NEURO: PATIENT INTUABTED AND SEDATED ON PROPOFOL AND FENTANYL. PUPILS APPEAR SMALL WITH NO REACTION TO LIGHT. PT DID NOT HAVE COUGH/GAG OR CORNEAL REFLEX WITH NO RESPONSE TO PAIN TODAY UNTIL 1600. PT BEGAIN WITHDRAWING FROM PAIN WITH +COUGH REFLEX, NO GAG OR CORNEAL REFLEX AT THIS TIME. FEBRILE TMAX 101. COOLING BLANKET AND PRN TYLENOL ADMINISTERED. CARDIAC: PATIENT CURRENTLY ON LEVOPHED AT 20MCG/MIN, EPI AT 2 MCG/MIN AND VASOPRESSIN AT 0.04 UNITS/MIN TO MAINTAIN MAP GREATER THAN 65. ATTEMPTS WERE MADE TO HOLD EPI BUT UNABLE TO MAINTAIN MAP GREATER THAN 65. SEE FLOW CHART FOR TITRATIONS. PATIENT HAS BEEN IN SINUS RHYTHM WITH OCCASIONAL PVCS. TRANSVENOUS PACER INTACT AND IN PLACE. SINCE RATE SET AT 60 THIS AM ONLY OCCASIONALY PACE WITH A PVC. HR HAS REMAINED MOSTLY IN THE 80S TODAY OCCASIONAL 90S. OF NOTE PT HAS HAD A FEW EPISODES OF HYPERTENSION THAT LASTS APPROX 1-3MIN SBP HIGH 200. DR MCKEON AWARE. HR REMAINED IN THE 80S DURING THESE EVENTS. PULMONARY: LUNG SOUNDS DIM IN BASES BUT REMAINED MOSTLY CLEAR TODAY. +THICK SECREATIONS FROM ETT TUBE. SPUTUM SAMPLE SENT. REMAINS INTUBATED. FIO2 DECREASED FROM 70 TO 40% GI: ABDOMEN IS MILDLY DISTENDED AND SLIGHTLY FIRM WITH HYPOTONIC BOWEL TONES. OG TUBE IN PLACE. TUBE FEEDS STARTED, VITAL HIGH PROTEIN AT 20ML/HR -GOAL. RECTAL TEMP IN PLACE. : LYONS IN PLACE DRAINING YELLOW URINE, UOP AVG 45ML/HR TODAY SEE FLOWCHART FOR DETAILS. SKIN IS INTACT, HAS DSG TO R AHN PRIOR I/O SITE, SOME MILD SWELLING AROUND EYES OCCURRED THIS AFTERNOON. FAMILY INTO VISIT TODAY UPDATES PROVIDED.
[2024-06-27 17:42] LABS: Calcium, Blood 8.6 mg/dL (8.5-10.1); Creatinine, Blood 1.69 mg/dL (0.60-1.20); Magnesium, Blood 2.1 mg/dL (1.6-2.4); Phosphorus, Blood 3.3 mg/dL (2.5-4.9); Potassium, Blood 4.4 mmol/L (3.5-5.5)
--- NOTE | 2024-06-27 20:39 | NUR ---
ASSUME CARE: BEDSIDE REPORT RECIEVED FROM AKIRAORROSALINE RN. PT INTUBATED AND SEDATED, RASS -4, PROPOFOL AT 20 MCG/KG/MIN. PT DOES WITHDRAW FROM PAINFUL STIMULI AND GRIMACES WITH ORAL CARE. PUPILS SMALL AND DO NOT RESPOND TO LIGHT. SBP 110s-130s, MAP>65, PT ON PRESSORS, SEE FLOWSHEET FOR TITRATIONS. MONITOR SHOWS SR, RATE 80s. SPO2>95% ON VENT, SETTINGS 16/400/10 AT 40%. COOLING BLANKET IN PLACE, TEMP MAX 100.9. TEMPORARY PACEMAKER IN PLACE, RATE CHANGED TO 60 TODAY, DRESSING C/D/I. ARTLINE IN PLACE, DRESSING C/D/I. OGT PATENT INFUSING TF VITAL HIGH PROTEIN AT GOAL OF 20 ML/HR. LYONS PATENT DRAINING TO GRAVITY. WILL UPDATE NEEDED.
[2024-06-28 03:27] LABS: PCO2 Arterial 29.5 mmHg (35-45); PO2 Arterial 149 mmHg (80-100); pH Blood Arterial 7.47 (7.35-7.45)
[2024-06-28 03:38] LABS: BASOPHILS ABSOLUTE AUTO 0.06 K/mm3 (0.00-0.23); BASOPHILS PERCENT AUTO 0 % (0-2); EOSINOPHILS ABSOLUTE AUTO 0.02 K/mm3 (0.00-0.68); EOSINOPHILS PERCENT AUTO 0 % (0-6); Hemoglobin 13.9 g/dL (13.5-17.5); IMMATURE GRAN ABSOLUTE AUTO 0.13 K/mm3 (0.00-0.10); IMMATURE GRAN PERCENT AUTO 1 % (0-1); LYMPHOCYTES ABSOLUTE AUTO 1.48 K/mm3 (0.84-5.20); LYMPHOCYTES PERCENT AUTO 9 % (21-46); MONOCYTES ABSOLUTE AUTO 1.07 K/mm3 (0.16-1.47); MONOCYTES PERCENT AUTO 6 % (4-13); Mean Corpuscular HGB 34.1 pg (26.0-34.0); Mean Corpuscular HGB Conc 35.6 g/dL (31.5-36.5); Mean Corpuscular Volume 96 fL (80-100); NEUTROPHILS ABSOLUTE AUTO 14.11 K/mm3 (1.96-9.15); NEUTROPHILS PERCENT AUTO 84 % (41-73); Platelet Count 105 K/mm3 (150-400); RDW Coefficient Variation 12.3 % (11.7-14.2); RDW Standard Deviation 43.4 fL (35.1-46.3); Red Blood Cell Count 4.08 M/mm3 (4.30-5.90); White Blood Cell Count 16.87 K/mm3 (4.00-11.30)
[2024-06-28 03:58] LABS: Albumin, Blood 2.4 g/dL (3.4-5.0); Albumin/Globulin Ratio 0.8 (0.8-1.8); Bilirubin, Total 0.9 mg/dL (0.1-1.0); Bun/Creatinine Ratio 15.7 (12.0-20.0); Calcium, Blood 8.2 mg/dL (8.5-10.1); Creatinine, Blood 1.4 mg/dL (0.60-1.20); Magnesium, Blood 1.9 mg/dL (1.6-2.4); Phosphorus, Blood 2.9 mg/dL (2.5-4.9); Potassium, Blood 4.1 mmol/L (3.5-5.5); Total Protein, Blood 5.4 g/dL (6.4-8.2)
[2024-06-28] MEDS ORDERED: Dose Adjust by Pharmacy XX STA ×2 (04:03→11:24)
--- NOTE | 2024-06-28 05:50 | NUR ---
SHIFT SUMMARY: PT INTUBATED AND SEDATED, RASS -3. PROPOFOL CURRENTLY AT 20 MCG/KG/MIN. PT HAS PERIODS OF SHIVERING/SHAKING, MEDICATED PER EMAR. SBP 100s-110s, MAP>65, PT ON PRESSORS, SEE FLOWSHEET FOR TITRATIONS. SPO2>95% ON VENT, SETTINGS ACVC 16/400/10 AT 40%. MONITOR SHOWS SINUS RYTHM WITH OCCASIONAL PVCs. TMAX 100.3, MEDICATED PER EMAR, COOLING BLANKET IN PLACE. TUBE FEED OFF AT 0330 FOR POSSIBLE PROCEDURE THIS AM. AT 0500 PT HAD A LARGE AMOUNT OF THICK RAMOS SECRETIONS. PT HAS FIRM ABD AND HYPOACTIVE BOWEL TONES, BOWEL CARE STARTED THIS AM. TEMPORARY PACEMAKER IN PLACE, DRESSING C/D/I. LYONS PATENT DRAINING TO GRAVITY. WILL REPORT TO ONCOMING RN.
[2024-06-28 06:00] VITALS: BP 112/72
[2024-06-28 07:00] VITALS: BP 124/87
[2024-06-28 08:00] VITALS: BP 125/95
[2024-06-28 08:55] VITALS: BP 121/60
[2024-06-28] MEDS ORDERED: CALCIUM GLUC IN NACL, ISO-OSM 100 ML IV ONE (09:00)
[2024-06-28] MEDS ORDERED: Magnesium Sulf 2 GM/Water 50ML 50 ML IV ONE (09:00)
[2024-06-28 09:32] VITALS: BP 108/54
[2024-06-28 10:47] LABS: Vancomycin, Random 9.4 ug/mL
[2024-06-28 11:32] VITALS: BP 89/46
[2024-06-28 11:37] LABS: Acinetobacter baumannii DNA Not Detected copy/mL (NOT DETECT); Enterobacter cloacae DNA Not Detected copy/mL (NOT DETECT); Escherichia coli DNA Not Detected copy/mL (NOT DETECT); Haemophilus influenzae DNA Not Detected copy/mL (NOT DETECT)
[2024-06-28 11:38] LABS: Adenovirus DNA Not Detected (NOT DETECT); CTX-M Resistance Gene Not Detected; Chlamydia pneumonia Not Detected (NOT DETECT); Human Coronavirus RNA Not Detected (NOT DETECT); IMP Resistance Gene Not Detected; KPC Resistance Gene Not Detected; Klebsiella aerogenes DNA Detected Bin 10^5 copy/mL (NOT DETECT); Klebsiella oxytoca DNA Not Detected copy/mL (NOT DETECT); Klebsiella pneumoniae DNA Not Detected copy/mL (NOT DETECT); Legionella pneumophila Not Detected (NOT DETECT); Moraxella catarrhalis DNA Not Detected copy/mL (NOT DETECT); Mycoplasma pneumoniae Not Detected (NOT DETECT); NDM Resistance Gene Not Detected; OXA-48-like Resistance Gene Not Detected; Proteus sp DNA Not Detected copy/mL (NOT DETECT); Pseudomonas aeruginosa DNA Not Detected copy/mL (NOT DETECT); Serratia marcescens DNA Not Detected copy/mL (NOT DETECT); Staphylococcus aureus DNA Not Detected copy/mL (NOT DETECT); Streptococcus agalactiae DNA Not Detected copy/mL (NOT DETECT); Streptococcus pneumoniae DNA Not Detected copy/mL (NOT DETECT); Streptococcus pyogenes DNA Not Detected copy/mL (NOT DETECT); VIM Resistance Gene Not Detected; mecA/C and MREJ Resist Gene Not Detected
[2024-06-28 11:39] LABS: Human Metapneumovirus RNA Not Detected (NOT DETECT); Influenza virus A RNA Not Detected (NOT DETECT); Influenza virus B RNA Not Detected (NOT DETECT); Parainfluenza virus RNA Not Detected (NOT DETECT); Respiratory syncytial Vir RNA Not Detected (NOT DETECT); Rhinovirus+Enterovirus RNA Not Detected (NOT DETECT)
[2024-06-28] MEDS ORDERED: Vancomycin HCL 1,500 MG in NS 250 ML IV SCH (12:00)
--- NOTE | 2024-06-28 13:53 | NUR ---
Pt. is intubated and is not responsive. Pts. spouse and neighbor friends are present. Facilitate a life review and listen with interest and empathy. Spouse verbalizes an expectation that there will be a procedure that will give more information regarding the Pts. prognosis. One of the neighbor friends (William) is a retired apparel manufacture instructor and is known to this talent acquisition program manager from the community. After establishing a measure of rapport with the spouse, I prayed for the Pt. family verbalized gratitude for the spiritual care support. Will remain available to the Pt. and family.
--- NOTE | 2024-06-28 18:28 | NUR ---
PATIENT INTUBATED AND SEDATED WTIH A RASS OF -3. SEDATION VACATION COMPLETED THIS MORNING, PATIENT ALERT BUT DROWSY ABLE TO FOLLOW COMMANDS, MOVED UPPER AND LOWER EXTREMITIES. PROPOFOL RESTARTED PRIOR TO TANIA. DR MADRID PERFORMED TANIA AND REMOVED THE TRANSVENOUS PACER. PRESSURE HELD TO SITE FOR 5 MIN WITH GAUZE AND TEGADERM PLACED SITE IS C/D/I AND AREA IS SOFT. CARDIAC: PT CURRENTLY ON LEVOPHED AT 6MCG/MIN, VASOPRESSION AT 0.04MCG/MIN AND HEPARIN AT 12U/KG/HR. SBP 90-110S TITRATION OF CARDIAC MEDS TO MAINTAIN MAP >65 SEE FLOW SHEET FOR TITRATION. HR 100S THIS AM. PATIENT REMAIN FEBRILE UNTIL APPROX 1700. TMAX 102.6 PULMONARY: INTUABTED ACVC 16/400/5/30. +THICK SPUTUM YELLOW/BROWN, LUNGS ARE COARSE WITH DIM POSTERIOR BASES. O2 SATS REMAINED 98-100 TODAY. GI: ABDOMEN IS SLIGHTLY FIRM HYPOTONIC BOWEL TONES, SOME INCREASE IN MOVEMENT THIS AFTERNOON. : LYONS DRAINING TO GRAVITY. FAMILY INTO VISIT THIS MORNING AND EVENING UPDATES PROVIDED. FENTANYL 25MCG/HR USED TO CONTROL PAIN TO CHEST WALL S/P CARDIAC ARREST COOLING BLANKET AND ICE APPLIED TO BILATERAL AXILLAS AND GROING TO CONTROL TEMP.
[2024-06-28] MEDS ORDERED: Protein Supplement 30 ML UD PT SCH (21:00)
[2024-06-29] MEDS ORDERED: Dose Adjust by Pharmacy XX STA ×4 (01:53→22:55)
[2024-06-29 03:39] LABS: BASOPHILS ABSOLUTE AUTO 0.05 K/mm3 (0.00-0.23); BASOPHILS PERCENT AUTO 0 % (0-2); EOSINOPHILS ABSOLUTE AUTO 0.11 K/mm3 (0.00-0.68); EOSINOPHILS PERCENT AUTO 1 % (0-6); Hematocrit 34.3 % (37.0-53.0); Hemoglobin 12.3 g/dL (13.5-17.5); IMMATURE GRAN ABSOLUTE AUTO 0.11 K/mm3 (0.00-0.10); IMMATURE GRAN PERCENT AUTO 1 % (0-1); LYMPHOCYTES ABSOLUTE AUTO 1.26 K/mm3 (0.84-5.20); LYMPHOCYTES PERCENT AUTO 10 % (21-46); MONOCYTES PERCENT AUTO 5 % (4-13); Mean Corpuscular HGB 34.5 pg (26.0-34.0); Mean Corpuscular HGB Conc 35.9 g/dL (31.5-36.5); Mean Corpuscular Volume 96 fL (80-100); Mean Platelet Volume 10.3 fL (9.1-12.4); NEUTROPHILS ABSOLUTE AUTO 11.01 K/mm3 (1.96-9.15); NEUTROPHILS PERCENT AUTO 83 % (41-73); Platelet Count 99 K/mm3 (150-400); RDW Coefficient Variation 12.4 % (11.7-14.2); RDW Standard Deviation 43.1 fL (35.1-46.3); Red Blood Cell Count 3.57 M/mm3 (4.30-5.90); White Blood Cell Count 13.24 K/mm3 (4.00-11.30)
[2024-06-29 03:57] LABS: Albumin, Blood 2.3 g/dL (3.4-5.0); Albumin/Globulin Ratio 0.7 (0.8-1.8); Bun/Creatinine Ratio 17.3 (12.0-20.0); Calcium, Blood 8.3 mg/dL (8.5-10.1); Creatinine, Blood 1.33 mg/dL (0.60-1.20); Globulin, Blood 3.4 g/dL (2.2-4.0); Magnesium, Blood 2.5 mg/dL (1.6-2.4); Phosphorus, Blood 2.6 mg/dL (2.5-4.9); Potassium, Blood 3.8 mmol/L (3.5-5.5); Total Protein, Blood 5.7 g/dL (6.4-8.2)
--- NOTE | 2024-06-29 05:13 | NUR ---
SHIFT SUMMARY: PT INTUBATED AND SEDATED, RASS -3. PROPOFOL AT 20 MCG/KG/MIN. PT OPENS EYES SPONTANEOUSLY AND MOVES FEET INTERMITTENTLY. PT ON LEVOPHED AND VASOPRESSIN TO KEEP MAP >65, SEE FLOWSHEET FOR TITRATIONS. MONITOR SHOWS SINUS RYTHM, RATE 80-90s. SPO2>95% ON VENT, SETTINGS ACVC 16/400/5 AT 30%. PT HAS THICK RAMOS SECRETIONS WITH ORAL SUCTIONING. TMAX 100.8, MEDICATED PER EMAR, COOLING BLANKET IN PLACE. PT HAD PERIODS OF SHIVERING, MEDICATED PER EMAR. HEPARIN GTT AT 13 U/KG/HR, FENTANYL AT 50 MCG/HR. WILL REPORT TO ONCOMING RN.
[2024-06-29 08:16] VITALS: BP 112/57
--- NOTE | 2024-06-29 09:48 | NUR ---
Dr Cabrera in to see patient. Changed ventilator settings to P/S 7/5. RR 10-12. Tidal volumes approx 700 mL. Fentanyl drip stopped during breathing trial. RT Zamorano notified of changes.
[2024-06-29] MEDS ORDERED: Calcium Chloride 10% 2,000 MG in NS 100 ML IV ONE (09:50)
[2024-06-29 10:19] VITALS: BP 123/60
--- NOTE | 2024-06-29 11:01 | NUR ---
Pt. is intubated and is not responsive. spouse and two grandchildren are present at bedside. Spouse is unsettled by her own personal exhaustion and verbalizes that she is very tired. Facilitate an update and connect with the grandchildren who verbalize they will be retuning to [place] later to today. Family verbalized gratitude for the spiritual care visit. We continue to be available to Pt. and family.
--- NOTE | 2024-06-29 17:53 | NUR ---
SHIFT SUMMARY PT REMAINS INTUBATED AND SEDATED. GIVEN BRIEF SBT THIS AM, BECAME QUITE TACHYPNEIC AND TACHYCARDIC, THIS RN UNABLE TO CALM PT HENCE BACK ON VENT @ PREVIOUS SETTINGS. DURING SBT, PROPOFOL OFF AND PT OPENING EYES, SQUEEZING L HAND, WEAKLY MOVING R ARM AND LEG. PROPOFOL & FENTANYL GTT INFUSING FOR SEDATION. HEPARIN GTT @ 16U/KG/HR. LEVOPHED @ 4MCG/MIN c MAP >65 VIA ABP. TF CHANGED TO JEVITY 1.2, CURRENTLY @ 20ML/HR. 2 LOOSE BM'S TODAY. TEMP PROBE LYONS DRAINING YELLOW URINE. SPOUSE UPDATED BY DR. MCKEON THIS AM.
[2024-06-29 19:21] VITALS: BP 107/50
--- NOTE | 2024-06-29 20:39 | NUR ---
ASSUMED CARE AT APPROX 1900 PATIENT IS INTUBATED AND SEDATED ON PROPOFOL AND FENTANYL. RESPONDS TO TOUCH, ABLE TO FOLLOW SIMPLE COMMANDS, MINIMAL MOVEMEMENT IN RUE, ABLE TO WIGGLE TOES AND MOVE LUE TO COMMANDS. PRN ATIVAN GIVEN. SP02 98% ON VENT, AC VC+ 16/400/5/30%, RR 19, LS COARSE, SUCTIONED LARGE AMOUNT OF THICK RAMOS FROM ETT. HR SR-ST 90s-110. BP HYPOTENSIVE, LEVOPHED INFUSING TO MAINTAIN MAP >65. ART LINE IN PLACE. HEPARIN REMAINS INFUSING PER PHARMACY. OG WITH TF JEVITY AT 30 MLS/HR, GOAL IS 45 MLS/HR. 30 MLS WATER FLUSHES Q4 HOURS. LYONS PATENT AND DRAINING CLEAR/YELLOW URINE TO GRAVITY. RECTAL PROBE IN PLACE, TEMP CURRENTLY 99.6. PATIENT REPOSITIONED AND ORAL CARE DONE. SEE SHIFT ASSESSMENT FOR MORE INFORMATION.
[2024-06-29] MEDS ORDERED: NS 500 ML IV SCH (22:25)
[2024-06-29] MEDS ORDERED: NS 250 ML IV PRN (22:30)
[2024-06-30] VITALS (35 sets, daily range): BP systolic 78–145; BP diastolic 51–84
[2024-06-30 05:28] LABS: BASOPHILS ABSOLUTE AUTO 0.05 K/mm3 (0.00-0.23); BASOPHILS PERCENT AUTO 1 % (0-2); EOSINOPHILS ABSOLUTE AUTO 0.25 K/mm3 (0.00-0.68); EOSINOPHILS PERCENT AUTO 2 % (0-6); Hematocrit 32.8 % (37.0-53.0); Hemoglobin 11.4 g/dL (13.5-17.5); IMMATURE GRAN ABSOLUTE AUTO 0.21 K/mm3 (0.00-0.10); IMMATURE GRAN PERCENT AUTO 2 % (0-1); LYMPHOCYTES ABSOLUTE AUTO 1.37 K/mm3 (0.84-5.20); LYMPHOCYTES PERCENT AUTO 13 % (21-46); MONOCYTES ABSOLUTE AUTO 0.63 K/mm3 (0.16-1.47); MONOCYTES PERCENT AUTO 6 % (4-13); Mean Corpuscular HGB Conc 34.8 g/dL (31.5-36.5); Mean Corpuscular Volume 98 fL (80-100); Mean Platelet Volume 10.5 fL (9.1-12.4); NEUTROPHILS ABSOLUTE AUTO 7.82 K/mm3 (1.96-9.15); NEUTROPHILS PERCENT AUTO 76 % (41-73); Platelet Count 101 K/mm3 (150-400); RDW Coefficient Variation 12.8 % (11.7-14.2); RDW Standard Deviation 45.7 fL (35.1-46.3); Red Blood Cell Count 3.35 M/mm3 (4.30-5.90); White Blood Cell Count 10.33 K/mm3 (4.00-11.30)
[2024-06-30 05:44] LABS: Magnesium, Blood 2.2 mg/dL (1.6-2.4)
[2024-06-30 05:59] LABS: Albumin/Globulin Ratio 0.6 (0.8-1.8); Bilirubin, Total 0.6 mg/dL (0.1-1.0); Bun/Creatinine Ratio 20.9 (12.0-20.0); Calcium, Blood 8.9 mg/dL (8.5-10.1); Creatinine, Blood 1.39 mg/dL (0.60-1.20); Globulin, Blood 3.4 g/dL (2.2-4.0); Phosphorus, Blood 1.9 mg/dL (2.5-4.9); Potassium, Blood 3.1 mmol/L (3.5-5.5); Total Protein, Blood 5.4 g/dL (6.4-8.2)
--- NOTE | 2024-06-30 05:59 | NUR ---
SHIFT SUMMARY PATIENT REMAINS INTUBATED AND SEDATED ON PROPOFOL AND FENTANYL. PRN ATIVAN GIVEN AND PROPOFOL TITRATED UP FOR VENT COMPLIANCE. TITRATING SEDATION BACK DOWN THIS MORNINF. SP02 98% ON VENT AC VC+ 16/400/5/30%. HR SR 70s. LEVOPHED REMAINS INFUSING TO MAINTAIN MAP >65. ART LINE REMAINS IN PLACE AND PATENT. OG WITH TF JEVITY AT GOAL RATE, TITRATED TO GOAL AT APPROX 0600. LYONS PATENT AND DRAINING TO GRVAITY. BEDBATH DONE. ONE SMALL BM THIS SHIFT, BROWN AND SOFT. REPOSITIONED Q2 HOURS
[2024-06-30] MEDS ORDERED: Potassium Phosphate Dibasic 30 MM in Dextrose 5% 500 ML IV ONE (06:20)
[2024-06-30] MEDS ORDERED: Cetylpyridinium Chloride 1 EA MISC MT SCH (08:00)
[2024-06-30] MEDS ORDERED: dexmedeTOMIDine 100 ML IV SCH (09:45)
--- NOTE | 2024-06-30 09:49 | NUR ---
AM NOTE... ASSUMED CARE OF PT AT 0700, PT IS INTUBATED AND SEDATED. PROPOFOL IS RUNNING AT 35MCG/KG, FENTANYL GTT IS RUNNIG AT 25MG/HR. LEVOPEHD WAS RUNNING AT 5MCG/MIN TO KEEP MAPS>65 THIS WAS STOPPED AT 0845. THE PT IS ON AC/VC+ 16/400/5/30% WITH O2 SATS>95% L/S CLEAR T/O DIM IN THE BASES. SCANT THICK YELLOW/RAMOS SPUTUM SUCTIONED BY RT. PROPOFOL WAS STOPPED AT 0825 FOR SBT AT 0830. PT IS AT 10/5 AND 30% WITH O2 SATS>95%. OG TUBE IS PATENT AND TUBE FEEDS WERE RUNNING AT GOAL OF 45MLS/HR THIS WAS STOPPED AT 0830 FOR SBT. BT PRESENT AND HYPOACTIVE, ABD IS FRIM TO PALPATION. TEMP LYONS IS PATENT AND DRAINING TO GRAVITY. PT'S TEMPORAL TEMP THIS AM WAS 97.7. SHIVERING NOTED DURING THIS ASSESSMENT AND WARM BLANKETS WERE PROVIDED WHICH IMPROVED THE SHIVERING.
--- NOTE | 2024-06-30 11:57 | NUR ---
Spiritual Care Support. Pt. is intubated. Supportive neighbor William is at bedside talking with Dr, and nurse, Pastoral care and support is given. is not present. Neighbor verbalized gratitude for the spiritual care visit.
[2024-06-30] MEDS ORDERED: Hydrogen Peroxide 1.5 % Solution MT SCH (12:00)
[2024-06-30] MEDS ORDERED: Dose Adjust by Pharmacy XX STA (12:15)
[2024-06-30 12:34] LABS: Vancomycin, Trough 8.2 ug/mL (5.0-10.0)
[2024-06-30] MEDS ORDERED: Oxacillin Sod 2,000 MG in NS 100 ML IV SCH (17:00)
--- NOTE | 2024-06-30 18:00 | NUR ---
SHIFT SUMMARY... PT WAS ON SBT FROM APROX 0830 TO 1230 THIS SHIFT, PT HAD EPISODES OF SEVERE ANXIETY AND AGITATION BUT WHEN LEFT ALONE HE WOULD BE CALM AND COOPERATIVE, PRECEDEX GTT WAS STARTED WHICH IMPROVED THE AGITATION GREATLY. PT'S TUBE FEEDS WERE ALSO OFF FROM 0830 TO 1230 DURING THE SBT. PLANS TO LIBERATE THE PT FROM THE VENT TOMORROW WHEN THE SRIDHAR IS AT THE BEDSIDE. THE PT'S ET TUBE WAS NOTED TO KINK EASILY, RT NOTIFIED, RT AT THE BEDSIDE ADJUSTED THE LENGHT OF THE ET TUBE WHICH IMPROVED THE KINKING PROBLEM. CURRENTLY THE PT'S ET TUBE IS NOW 26 AT THE TEETH, PROVIDER WAS NOTIFIED, PER PROVIDER NO CXR IS NEEDED FOR PLACEMENT CHANGE. AT 1530 THE PT'S ART LINE WAS REMOVED AFTER THE HEPARIN GTT WAS STOPPED APROX 2 HRS. MANUAL PRESSURE WAS HELD BY THIS RN FOR 20MINS, NO BLEEDING, SWELLING OR HEMATOMA IS NOTED TO THE RIGHT FEMORAL SITE. THE CENTRAL LINE DRESSING TO THE LEFT GROIN WAS CHANGED BY THIS RN THIS SHIFT. PT HAD 1 SOFT/LOOSE BROWN STOOL TODAY. PT'S LYONS IS PATENT AND DRAINING CLEAR YELLOW URINE TO GRAVITY.
--- NOTE | 2024-06-30 20:57 | NUR ---
ASSUMED CARE AT APPROX 1900 PATIENT IS INTUBATED AND SEDATED ON PROPOFOL, PRECEDEX AND FENTANYL. ATTEMPTING TO TITRATE PROPOFOL OFF. LOCALIZES TO PAIN. SP02 97% ON VENT AC VC 16/400/5/30%, SMALL AMOUNT OF THICK RAMOS SUCTIONED FROM ETT. HR SR/SB 55-60s, LEVOPHED INFUSING TO MAINTAIN MAP >65. HEPARIN REMAINS INFUSING. RIGHT GROIN WITH TEGADERM IN PLACE FROM ART LINE REMOVAL, WNL. RIGHT IJ WITH DRESSING IN PLACE FROM PACER REMOVAL, SITE WNL. OG WITH TF JEVITY 1.2 INFUSING AT GOAL RATE 45 MLS/HR. LYONS PATENT AND DRAINING TO GRAVITY. ORAL CARE DONE AND PATIENT REPOSITIONED.
[2024-07-01] VITALS (84 sets, daily range): BP systolic 82–148; BP diastolic 55–112
[2024-07-01] MEDS ORDERED: Clarify Drug Order XX ONE ×2 (00:25→06:35)
[2024-07-01 06:01] LABS: Hematocrit 32.4 % (37.0-53.0); Hemoglobin 10.8 g/dL (13.5-17.5); Mean Platelet Volume 10.4 fL (9.1-12.4); Platelet Count 106 K/mm3 (150-400)
--- NOTE | 2024-07-01 06:06 | NUR ---
SHIFT SUMMARY PATIENT REMAINS INTUBATED AND SEDATED ON PRECEDEX AND FENTANYL. PROPOFOL WAS TITRATED OFF, ATTEMPTED TO GO DOWN ON PRECEDEX BUT PATIENT UNABLE TO TOLERATE IT FOR LONG. PATIENT FOLLOWS SIMPLE COMMANDS. RIGHT SIDED WEAKNESS. SP02 98% ON VENT, AC VC 16/400/5/30%. HR SB 50s. BP STABLE AND LEVOPHED TITRATED OFF THIS SHIFT. OG WITH TF AT GOAL. LYONS PATENT AND DRAINING TO GRAVITY. BEDBATH DONE, REPOSITIONED Q2 HOURS.
[2024-07-01 07:08] LABS: BASOPHILS ABSOLUTE AUTO 0.08 K/mm3 (0.00-0.23); BASOPHILS PERCENT AUTO 1 % (0-2); EOSINOPHILS ABSOLUTE AUTO 0.24 K/mm3 (0.00-0.68); EOSINOPHILS PERCENT AUTO 3 % (0-6); Hematocrit 32.3 % (37.0-53.0); Hemoglobin 10.9 g/dL (13.5-17.5); IMMATURE GRAN ABSOLUTE AUTO 0.54 K/mm3 (0.00-0.10); IMMATURE GRAN PERCENT AUTO 6 % (0-1); LYMPHOCYTES ABSOLUTE AUTO 1.07 K/mm3 (0.84-5.20); LYMPHOCYTES PERCENT AUTO 12 % (21-46); MONOCYTES ABSOLUTE AUTO 0.66 K/mm3 (0.16-1.47); MONOCYTES PERCENT AUTO 8 % (4-13); Mean Corpuscular HGB 33.9 pg (26.0-34.0); Mean Corpuscular HGB Conc 33.7 g/dL (31.5-36.5); Mean Corpuscular Volume 100 fL (80-100); Mean Platelet Volume 10.8 fL (9.1-12.4); NEUTROPHILS ABSOLUTE AUTO 6.01 K/mm3 (1.96-9.15); NEUTROPHILS PERCENT AUTO 70 % (41-73); NRBC ABSOLUTE 0.03 K/mm3 (0.00-0.02); NRBC Auto 0.3 /100 WBC (0.0-0.2); Platelet Count 102 K/mm3 (150-400); RDW Standard Deviation 48.3 fL (35.1-46.3); Red Blood Cell Count 3.22 M/mm3 (4.30-5.90)
[2024-07-01 07:20] LABS: Bun/Creatinine Ratio 24.1 (12.0-20.0); Calcium, Blood 8.2 mg/dL (8.5-10.1); Creatinine, Blood 1.41 mg/dL (0.60-1.20); Potassium, Blood 3.6 mmol/L (3.5-5.5)
--- NOTE | 2024-07-01 07:58 | NUR ---
AM NOTE... ASSUMED CARE OF PT AT 0700, PT IS INTUBATED AND SEDATED WITH PRECEDEX AT 1.0MCG/KG/HR AND FENTANYL GTT AT 25MG/HR. PT'S RASS IS +2 TO -1 WITH THE PT BECOMING MORE ANXIOUS WITH STIMULATION BUT IMPROVED FROM YESTERDAY PRIOR TO THE START OF THE PRECEDEX GTT. PT'S VENT SETTINNGS WERE AC/VC+ 16/400/5/30% WITH O2 SATS>95% AT 0735 THIS WAS CHANGED OVER TO SP 10/5 AND 30% BY RT. PT'S TUBE FEEDS WERE PUT ON HOLD AT THIS TIME WELL FOR POSSIBLE LIBERATION TODAY. L/S ARE COARSE IN THE UPPER LOBES BUT CLEAR WITH COUGHING/SUCTIONING. DIM IN THE BILATERAL BASES. OG TUBE IS PATENT BUT CLAMPED AT THIS TIME. BT PRESENT AND HYPOACTIVE. LYONS IS PATENT AND DRAINING TO GRAVITY.
[2024-07-01 08:06] LABS: BASOPHILS ABSOLUTE MAN 0.08 K/mm3 (0.00-0.23); BASOPHILS PERCENT MAN 1 % (0-2); EOSINOPHILS ABSOLUTE MAN 0.25 K/mm3 (0.00-0.68); EOSINOPHILS PERCENT MAN 3 % (0-6); LYMPHOCYTES % ATYPICAL MANUAL 3 % (0-0); LYMPHOCYTES ABSOLUTE MAN 1.54 K/mm3 (0.84-5.20); LYMPHOCYTES PERCENT MAN 15 % (21-46); MONOCYTES ABSOLUTE MAN 0.51 K/mm3 (0.16-1.47); MONOCYTES PERCENT MAN 6 % (4-13); NEUTROPHILS ABSOLUTE MAN 6.19 K/mm3 (1.96-9.15); SEG NEUTROPHILS PERCENT MAN 72 % (41-73); TOTAL CELLS COUNTED 100
--- NOTE | 2024-07-01 11:11 | NUR ---
PT UPDATE.... AT 0945 PT'S VENT SETTINGS WERE CHANGED FROM SP 10/5 TO SP 5/5 AND 30% PT IS TOLERATING THIS CHANGE WELL. PT'S SEDATION WAS STOPPED AT 1000 FOR PLANNED LIBERATION. PT'S AND FAMILY AT THE BEDSIDE.
[2024-07-01] MEDS ORDERED: Albuterol 2.5 MG/3 ML VIAL ONE (12:15)
[2024-07-01] MEDS ORDERED: Albuterol 2.5 MG/3 ML VIAL INH PRN (12:15)
--- NOTE | 2024-07-01 13:54 | NUR ---
PT UPDATE... PT WAS EXTUBATED TO 4L NC AT 1200 PT'S SRIDHAR AT THE BEDSIDE. ONCE EXTUBATED THE PT'S RR WAS IN THE HIGH 40'S AND LABORED WITH ACCESSORY MUSCLE USE. PT'S L/S WERE COARSE AND TIGHT WITH SOME SCATTERED WHEEZES. PT WAS FOLLOWING SOME DIRECTIONS BUT WAS VERY AGITATED. BREATHING TREATMENTS WERE ORDERED AND THE PT WAS GIVEN 2MG IV ATIVAN. AFTER BOTH WERE GIVEN THE PT'S CONDITION IMPROVED. PRIOR TO EXTUBATION THE PT HAD A EXTRA LARGE LQUID BROWN STOOL AND CONTINUES TO HAVE LQUID STOOLS.
[2024-07-01] MEDS ORDERED: LORazepam 2 MG/ML 1ML Injection IV PRN (13:55)
--- NOTE | 2024-07-01 18:23 | NUR ---
SHIFT SUMMARY.... PT'S MENTATION HAS CLEARED SLIGHTLY SINCE LIBERATION FROM THE VENT. PT IS ABLE TO FOLLOW MORE COMMANDS SUCH "COUGH" AND "SQUEEZE MY HAND." PT IS VERY PAINFUL WITH TURNS/REPOSITONS. PT'S O2 HAS BEEN TITRATED DOWN FROM 4L TO 2L WITH O2 SATS>94%. LYONS IS PATENT AND DRAINING TO GRAVITY. PT'S FAMILY HAS BEEN AT THE BEDSIDE OFF AND ON T/O THIS SHIFT. HEPARIN GTT CONTINUES AT ORDERED RATE. PT'S CODE STATUS WAS CHANGED TO DNI, IF THE PT STARTS TO DECLINE THE WOULD LIKE TO BE CALLED PRIOR TO ANY FURTHER INTERVENTIONS.
--- NOTE | 2024-07-01 20:53 | NUR ---
ASSUMED CARE AT START OF SHIFT: PATIENT IS LYING IN BED, ALERT AND RESPONDS TO VERBAL STIMULI AND ABLE TO FOLLOW COMMANDS. PATIENT IS ABLE TO NOD OR GROWN WHEN ASKED YES OR NO QUESTIONS, BUT UNABLE TO TALK AT THIS TIME. PATIENT WAS EXTUBATED EARLIER TODAY AND LUNG SOUNDS ARE COARSE THOUGHOUT AND THEY ARE ON A NASAL CANNULA AT 2LMP SPO2 94%. IV LINES AMD LYONS CATHETER PATENT.
--- NOTE | 2024-07-01 21:10 | NUR ---
DECREASED O2 SATS O2 SATS DECREASED TO 86%. O2 PLACED IN MOUTH AND INCREASED TO 4L NC AND THEN 6L NC WITH SATS ONLY INCREASING TO 88-89%. NT SUCTIONED AT THIS TIME- SMALL AMOUNT OF WHITE SPUTUM. SATS INCREASED TO 95% AFTER.
[2024-07-02] VITALS (39 sets, daily range): BP systolic 110–197; BP diastolic 59–105
[2024-07-02 04:27] LABS: Hematocrit 32.1 % (37.0-53.0); Hemoglobin 10.9 g/dL (13.5-17.5); Mean Corpuscular HGB 33.9 pg (26.0-34.0); Mean Corpuscular Volume 100 fL (80-100); NRBC ABSOLUTE 0.04 K/mm3 (0.00-0.02); NRBC Auto 0.4 /100 WBC (0.0-0.2); Platelet Count 145 K/mm3 (150-400); RDW Coefficient Variation 13.1 % (11.7-14.2); Red Blood Cell Count 3.22 M/mm3 (4.30-5.90); White Blood Cell Count 10.09 K/mm3 (4.00-11.30)
[2024-07-02 04:45] LABS: Albumin, Blood 2.1 g/dL (3.4-5.0); Albumin/Globulin Ratio 0.6 (0.8-1.8); Bilirubin, Total 0.5 mg/dL (0.1-1.0); Bun/Creatinine Ratio 20.6 (12.0-20.0); Calcium, Blood 8.2 mg/dL (8.5-10.1); Creatinine, Blood 1.41 mg/dL (0.60-1.20); Globulin, Blood 3.6 g/dL (2.2-4.0); Potassium, Blood 3.6 mmol/L (3.5-5.5); Total Protein, Blood 5.7 g/dL (6.4-8.2)
[2024-07-02 04:51] LABS: BAND PERCENT MAN 6 % (0-8); BASOPHILS PERCENT MAN 1 % (0-2); EOSINOPHILS PERCENT MAN 1 % (0-6); LYMPHOCYTES ABSOLUTE MAN 1.41 K/mm3 (0.84-5.20); LYMPHOCYTES PERCENT MAN 14 % (21-46); METAMYELOCYTE PERCENT MAN 1 % (0-0); MONOCYTES PERCENT MAN 10 % (4-13); MYELOCYTE PERCENT MAN 3 % (0-0); NEUTROPHILS ABSOLUTE MAN 7.06 K/mm3 (1.96-9.15); SEG NEUTROPHILS PERCENT MAN 64 % (41-73); TOTAL CELLS COUNTED 100
[2024-07-02] MEDS ORDERED: Clarify Drug Order XX ONE (05:50)
--- NOTE | 2024-07-02 06:38 | NUR ---
SHIFT SUMMARY: PATIENT WAS DOING WELL THROUGHOUT THE SHIFT. PATIENT WAS COUGHING AND GROANING THOUGHOUT THE NIGHT. WHEN REPOSTIONING THE PATIENT STARTS COUGHING AND GROANING MORE, THEY WERE GIVEN SOME PAIN MEDICATION TO HELP REDUCE THEIR PAIN AFTER REPOSTIONING. PATIENT APPEARS TO EXPERIENCE MORE PAIN WHEN REPOSTIONING TO THEIR RIGHT SIDE, AND IS SLIGHTLY MORE COMFORTABLE WHEN POSITIONED SUPINE AND ON THEIR LEFT SIDE. AT THEY BEGINNING OF THE SHIFT THEY WERE ON A NASAL CANNULA @ 2LPM BUT THEIR SPO2 STATS DROPPED TO 86% AND THEY WERE PRIMAILY BREATHING THROUGH THEIR MOUTH, THEY WERE PLACED ON A O2 MASK AT 4LPM AND THEIR SPO2 >95%. WHEN AWAKE PATIENT IS RESTLESS AND TRIES TO KICK THEIR LEGS OFF THE SIDES OF THE BED.
--- NOTE | 2024-07-02 08:50 | NUR ---
ASSUMED CARE AT 0700 PT LAYING IN BED AT SHIFT CHANGE. HE IS OCCATIONALLY MOANING OUT BUT CHALLENGING FOR HIM TO FORM WORDS; FOLLOWING MINIMAL DIRECTIONS. SPO2 >94% ON 2L OXYMASK. AFEBRILE. NSR WITH RATE 90-100. SBP 130'S. CURRENTLY NPO. LYONS IN PLACE AND DRAINING TO GRAVITY. HEPARIN INFUSING AT 18UNITS/KG/HR. CENTRAL LINE TO LT GROIN PATENT. SEE SHIFT ASSESSMENT FOR FULL ASSESSMENT.
--- NOTE | 2024-07-02 17:52 | NUR ---
END OF SHIFT SUMMARY PT CONT TO BE ABLE TO FOLLOW DIRECTIONS; CONT TO MOAN OUT AT TIMES BUT IS ATTEMPTING TO FORM WORDS ALSO; ATIVAN GIVEN ONCE AND FENTANYL X3. SPO2 >92% ON RA; STRONGER COUGH NOTED T/O THE SHIFT. AFEBRILE. NSR WITH RATE 100-115. SBP 140-160'S. DOBHOFF PLACED TODAY FOR MED ROUTE; PIVOT 1.5 RESTARTED AT 45ML/HR (GOAL) WITH 30ML WATER FLUSHES Q4HR. LYONS IN PLACE AND DRAINING TO GRAVITY. CENTRAL LINE TO LT GROIN REMOVED; PRESSURE HELD, NO SIGNS OF BLEEDING OR HEMATOMA. PT AT BEDSIDE FOR A FEW HOURS TODAY. HEPARIN INFUSING AT 18UNITS/KG/HR. WILL REPORT TO PM RN WHEN AVAILABLE.
--- NOTE | 2024-07-02 20:05 | NUR ---
ASSUMPTION OF CARE: ASSUMED CARE OF PT AT 1910. PT RESPONDS TO VERBAL STIMULI. MOANS OUT FREQUENTLY. SHAKES HEAD YES TO PAIN. MEDICATED PER EMAR. FOLLOWS SOME SIMPLE DIRECTION. ON RA WITH SPO2 90'S. LUNGS COARSE ON LEFT, CLEAR ON RIGHT. CANDLE MOLDER IN PLACE, ST WITH HR 110-120'S. SBP 140-170'S. PT PCU STATUS. LYONS DRAINING TO GRAVITY. HEPARIN GTT AT 18 UNITS/KG/HR. PIV TO MARILEE PATENT AND INFUSING. DOBHOFF INTACT, INFUSING TF AT 45 ML/HR. NO BM YET. BED LOW AND LOCKED, CALL LIGHT IN REACH.
[2024-07-03 00:08] VITALS: BP 140/75
[2024-07-03 03:16] LABS: Hematocrit 38.3 % (37.0-53.0); Mean Corpuscular HGB 33.9 pg (26.0-34.0); Mean Corpuscular HGB Conc 33.9 g/dL (31.5-36.5); Mean Corpuscular Volume 100 fL (80-100); Mean Platelet Volume 9.9 fL (9.1-12.4); NRBC ABSOLUTE 0.02 K/mm3 (0.00-0.02); NRBC Auto 0.2 /100 WBC (0.0-0.2); Platelet Count 183 K/mm3 (150-400); RDW Coefficient Variation 13.4 % (11.7-14.2); RDW Standard Deviation 48.7 fL (35.1-46.3); Red Blood Cell Count 3.83 M/mm3 (4.30-5.90); White Blood Cell Count 10.94 K/mm3 (4.00-11.30)
[2024-07-03 03:33] LABS: Bun/Creatinine Ratio 20.3 (12.0-20.0); Calcium, Blood 8.5 mg/dL (8.5-10.1); Creatinine, Blood 1.23 mg/dL (0.60-1.20); Potassium, Blood 3.5 mmol/L (3.5-5.5)
[2024-07-03 03:36] LABS: BAND PERCENT MAN 6 % (0-8); BASOPHILS PERCENT MAN 0 % (0-2); EOSINOPHILS ABSOLUTE MAN 0.21 K/mm3 (0.00-0.68); EOSINOPHILS PERCENT MAN 2 % (0-6); LYMPHOCYTES ABSOLUTE MAN 1.31 K/mm3 (0.84-5.20); LYMPHOCYTES PERCENT MAN 12 % (21-46); METAMYELOCYTE ABSOLUTE MAN 0.21 K/mm3 (0.00-0.00); METAMYELOCYTE PERCENT MAN 2 % (0-0); MONOCYTES PERCENT MAN 11 % (4-13); MYELOCYTE ABSOLUTE MAN 0.32 K/mm3 (0.00-0.00); MYELOCYTE PERCENT MAN 3 % (0-0); NEUTROPHILS ABSOLUTE MAN 7.65 K/mm3 (1.96-9.15); SEG NEUTROPHILS PERCENT MAN 64 % (41-73); TOTAL CELLS COUNTED 100
[2024-07-03] MEDS ORDERED: Clarify Drug Order XX ONE (03:55)
[2024-07-03 04:12] VITALS: BP 133/94
--- NOTE | 2024-07-03 05:24 | NUR ---
SHIFT SUMMARY: PT CONTINUES TO HOLLER OUT AND MOAN T/O THE NIGHT. ENDORSES PAIN WHEN ASKED. FOLLOWS SIMPLE DIRECTION. DOES NOT ANSWER QUESTIONS IN FULL SENTENCES, SIMPLE YES/NO QUESTIONS. MEDICATED PER EMAR FOR PAIN. CONTINUES TO PULL AT LINES T/O THE NIGHT, MEDICATED WITH PRN ATIVAN. REMAINS ON RA WITH SPO2 LOW 90'S. LUNGS COARSE. REMAINS IN SR/ST WITH HR 90-120'S. SBP 130'S THIS AM. DOBHOFF INFUSING TF AT GOAL. NO BM THIS SHIFT. LYONS DRAINING LARGE AMOUNT OF URINE. PIV TO LAC AND RAC BOTH PATENT. HEPARIN AT 18 UNITS/KG/HR. BED LOW AND LOCKED.
--- NOTE | 2024-07-03 06:49 | NUR ---
TRANSFER TO PCU: PT TRANSFERRED TO PCU 10 VIA BED. ALL BELONGINGS SENT WITH PT. REPORT GIVEN TO JAYY VINES.
[2024-07-03 07:30] VITALS: BP 136/98
[2024-07-03 11:20] VITALS: BP 145/84
--- NOTE | 2024-07-03 11:36 | NUR ---
MET WITH PT'S AND NEIGHBOR CAMILO AT PT'S BEDSIDE. DANIELLE STATES SHE IS READY TO TAKE PT HOME WITH HOSPICE. HIS ADVANCE DIRECTIVE STATES NO HEROIC MEASURES. POLST COMPLETED, DNR WITH COMFORT MEASURES. NEEDS SIGNED BY DR. LOWRY. PT ATTEMPTED TO PULL OUT NASAL FEEDING TUBE DURING THE VISIT, TOLD HIM HE IS GETTING IT REMOVED TO WHICH HE SHOOK HIS HEAD "YES." COMFORT CARE STARTING NOW, PT WILL D/C WITH HOSPICE.
[2024-07-03] MEDS ORDERED: Scopolamine Hydrobromide Patch TOP PRN (11:50)
[2024-07-03] MEDS ORDERED: LORazepam 1 MG Tab PO PRN (11:50)
[2024-07-03] MEDS ORDERED: Morphine Sulfate 20 MG/1ML 1 ML Oral Syringe SL PRN (11:50)
[2024-07-03] MEDS ORDERED: Atropine Sulfate 1% Opth Soln 2ML BTL SL PRN (11:50)
--- NOTE | 2024-07-03 12:40 | NUR ---
PT TRANSFERRED TO FROM ICU AT START OF SHIFT. PT TRANSFERRED TO COMFORT CARE.
--- NOTE | 2024-07-03 18:51 | NUR ---
SHIFT SUMMARY: PT NONVERBAL AND RESPONDS TO VERBAL STIMULI. OCCASIONAL MOANING AND RESTLESSNESS IN BED. PT ENDORSES PAIN EVALUATED WITH FLACC SCALE AND MEDICATED PER EMAR. LYONS IN PLACE. PT MOVED TO COMFORT CARE AND PLAN TO DISCHARGE TO HOME HOSPICE.
[2024-07-04] MEDS ORDERED: HYDROmorphone HCl/Pf 1MG SYR IV PRN (00:40)
[2024-07-04] MEDS ORDERED: Acetaminophen 650 MG Supp PR PRN (01:35)
--- NOTE | 2024-07-04 02:54 | NUR ---
ARRIVAL PT IS A NEW TRANSFER FROM PCU. ARRIVED VIA PATIENT BED, APPEARS VERY SOMULENT. ABLE TO ARROUSE PATIENT WITH LIGHT TOUCH. APPEARS TO BE RESTING PEACEFULLY. MUSIC TURNED ON, BED IN LOW, CALL LIGHT IN REACH
--- NOTE | 2024-07-04 05:34 | NUR ---
SHIFT SUMMARY NO ACUTE CHANGES SINCE ARRIVAL. PT MEDICATED ONCE W/ROXANOL AFTER APPEARING RESTLESS. LYONS REMAINS IN PLACE, LOW URINE OUTPUT NOTED. PT REPOSITIONED, TOLLERATED WELL. PT WAS ABLE TO ASK IF HE GETS TO GO HOME, AND APPEARED TO RELAX WHEN TOLD YES. THE PATIENT IS CURRENTLY RESTING, IN NO DISTRESS, CALL LIGHT IN REACH
[2024-07-04] MEDS ORDERED: ACETAMINOPHEN PR (10:28)
[2024-07-04] MEDS ORDERED: ATROPINE SULFATE2 M1 SL (10:29)
[2024-07-04] MEDS ORDERED: Ativan1 MG PO (10:30)
[2024-07-04] MEDS ORDERED: MORP20L SL (10:31)
[2024-07-04] MEDS ORDERED: TRANSDERM-SCOP1 EA13 TD (10:31)
--- NOTE | 2024-07-04 11:09 | NUR ---
DISCHARGE SUMMARY PT DISCHARGED HOME WITH HOSPICE. [facility] PROVIDED TRANSPORT. PAPERWORK PROVIDED TO EMT. MARIVELRALVIN PAPERWORK ALSO PROVIDED TO EMT TO PROVIDE TO PT SPOUSE FAMILY NOT PRESENT AT TIME OF DISCHARGE AND PT UNABLE TO SIGN. IV REMOVED BY BETTY SWENSON. SITE APPEARS WNL. DISCHARGED WITH LYONS, PATENT AND DRAINING CLEAR YELLOW URINE.
== END 2024-07-04 10:56 | disposition hospice, home (50) | DRG 270 ==
LOC: ER 10:13 → ICUE 13:14 → PCU 07-03 06:51 → MEDS 07-04 02:16
PROVIDERS: Family Medicine; Internal Medicine; Internal Medicine Critical Care Medicine; Student in an Organized Health Care Education/Training Program; ADMIT Hospitalist
PROC: 02CR3ZZ Extirpation of Matter from Left Pulmonary Artery, Percutaneous Approach (ICD-10-PCS; principal; 2024-06-26)
PROC: 027034Z Dilation of Coronary Artery, One Artery with Drug-eluting Intraluminal Device, Percutaneous Approach (ICD-10-PCS; principal; 2024-06-26)
PROC: 0BH17EZ Insertion of Endotracheal Airway into Trachea, Via Natural or Artificial Opening (ICD-10-PCS; 2024-06-26)
PROC: 5A1955Z Respiratory Ventilation, Greater than 96 Consecutive Hours (ICD-10-PCS; 2024-06-26)
PROC: 0DH67UZ Insertion of Feeding Device into Stomach, Via Natural or Artificial Opening (ICD-10-PCS; 2024-06-26)
PROC: 3E0G76Z Introduction of Nutritional Substance into Upper GI, Via Natural or Artificial Opening (ICD-10-PCS; 2024-06-26)
PROC: 5A12012 Performance of Cardiac Output, Single, Manual (ICD-10-PCS; 2024-06-26)
PROC: 4A023N7 Measurement of Cardiac Sampling and Pressure, Left Heart, Percutaneous Approach (ICD-10-PCS; 2024-06-26)
PROC: 4A133R1 Monitoring of Arterial Saturation, Peripheral, Percutaneous Approach (ICD-10-PCS; 2024-06-28)
DX: I21.19 ST elevation (STEMI) myocardial infarction involving other coronary artery of inferior wall (principal); I26.99 Other pulmonary embolism without acute cor pulmonale; I46.2 Cardiac arrest due to underlying cardiac condition; J96.01 Acute respiratory failure with hypoxia; J69.0 Pneumonitis due to inhalation of food and vomit; R57.0 Cardiogenic shock; J15.211 Pneumonia due to Methicillin susceptible Staphylococcus aureus; S22.43XA Multiple fractures of ribs, bilateral, initial encounter for closed fracture; I69.351 Hemiplegia and hemiparesis following cerebral infarction affecting right dominant side; J98.11 Atelectasis; I44.2 Atrioventricular block, complete; N17.9 Acute kidney failure, unspecified; E87.1 Hypo-osmolality and hyponatremia; E87.21 Acute metabolic acidosis; Z51.5 Encounter for palliative care; Z66 Do not resuscitate; E87.6 Hypokalemia; E78.5 Hyperlipidemia, unspecified; Z96.611 Presence of right artificial shoulder joint; R74.01 Elevation of levels of liver transaminase levels; D69.6 Thrombocytopenia, unspecified; N40.0 Benign prostatic hyperplasia without lower urinary tract symptoms; N18.31 Chronic kidney disease, stage 3a; R73.03 Prediabetes; E87.5 Hyperkalemia; I12.9 Hypertensive chronic kidney disease with stage 1 through stage 4 chronic kidney disease, or unspecified chronic kidney disease; N18.9 Chronic kidney disease, unspecified; G40.909 Epilepsy, unspecified, not intractable, without status epilepticus; E83.42 Hypomagnesemia; E83.51 Hypocalcemia; R73.9 Hyperglycemia, unspecified; R68.89 Other general symptoms and signs; I69.320 Aphasia following cerebral infarction; Z87.19 Personal history of other diseases of the digestive system; Z79.82 Long term (current) use of aspirin; Z79.2 Long term (current) use of antibiotics; Z98.890 Other specified postprocedural states; Z79.899 Other long term (current) drug therapy; X58.XXXA Exposure to other specified factors, initial encounter
CPT/HCPCS: 0528U; 33210; 36415; 36600; 51702; 70450; 71045; 71260; 72125; 74177; 75833; 76937; 80047; 80048; 80053; 80076; 80202; 81001; 82330; 82803; 82947; 83605; 83690; 83735; 83880; 84100; 84132; 84484; 85014; 85018; 85025; 85049; 85347; 85520; 85610; 85730; 86850; 86900; 86901; 87040; 87070; 87077; 87147; 87186; 87205; 87428-QW; 92973; 93005; 93010; 93306; 93308; 93312; 93321; 93325; 93458; 93970; 94002; 94003; 94640; 94664; 94762; 96361-59; 96365-59; 96375-59; 99285-25; A9270; C1725; C1757; C1760; C1769; C1874; C1887; C1894; C9600; C9606; J0171; J0461; J0612; J1250; J1644; J1815; J2060; J2175; J2371; J2470; J2543; J2700; J2704; J3010; J3370; J3475; J3480; J7030; J7040; J7050; J7060; J7070; J7120; Q9967